=== PATIENT | male | born 1970 | race Caucasian/White ===

== ENCOUNTER → 2017-09-01 15:11 | Outpatient (CLI) | payer OTHER, SELFPAY ==
--- NOTE | 2017-09-01 15:17 | MR_ITS ---
MR SHOULDER LT WO CON HISTORY: Left shoulder pain ORDERING PHYSICIAN: Oscar Mijares MD PATIENT AGE: 47 years COMPARISON: None TECHNIQUE: Standard multiplanar multiecho sequences are performed without contrast. FINDINGS: Moderate hypertrophic changes are present at the acromioclavicular joint.. There is complete tear of the supraspinatus tendon with mild retraction of the musculotendinous fibers. The infraspinatus tendon does appear intact. Subscapularis and teres minor tendons are also intact. No obvious labral tear. Subcortical cystic changes are present involving the humeral head at the base of the greater tuberosity. There is a small amount of fluid in the subacromial region and in the subdeltoid region. The bicipital tendon is in place. IMPRESSION: 1. Complete tear of the supraspinatus tendon with mild retraction of the musculotendinous fibers. 2. Hypertrophic changes of the acromioclavicular joint. 3. Subcortical cystic changes of the humeral head
== END ==
PROVIDERS: Family Provider Emergency Medicine; PCP Emergency Medicine; Visit Provider Orthopaedic Surgery
DX: M75.42 Impingement syndrome of left shoulder (principal)
CPT/HCPCS: 73221

== ENCOUNTER 2017-10-04 23:39 | Emergency (ER) | payer OTHER, SELFPAY ==
[2017-10-04 23:48] VITALS: BP 182/102; PULSE 110; RESP 18; TEMP 36.9; O2SAT 97; BMI 74.9
--- NOTE | 2017-10-05 00:10 | HMH.EDGENADL ---
ED Disposition Clinical Impression: Shoulder pain, left Qualifiers: Chronicity: unspecified Qualified Code(s): M25.512 - Pain in left shoulder Disposition: Home, Self-Care Condition on Discharge: Good Instructions: DI for Joint Pain Additional Instructions: see pcp in am Referrals: Richard Best MD [Primary Care Provider] - - Critical Care Critical Care Time: No Attestation: On 10/04/17, the high probability of a clinically significant, sudden or life threatening deterioration of the following system(s) required my full and direct attention, intervention and personal management. The time I documented below is in addition to time spent performing reported procedures but includes the following listed in this critical care notation. Medical Decision Making - Medical Records Medical records reviewed: Yes: I reviewed the patient's medical records. Vital Signs: 10/04/17 23:48 Temperature 98.5 F Temperature Source Oral Pulse Rate [Right Radial] 110 H Respiratory Rate 18 Blood Pressure [Right Arm] 182/102 Blood Pressure Mean [Right Arm] 128 Blood Pressure Source [Right Arm] Automatic Cuff Blood Pressure Position [Right Arm] Sitting 02 Sat by Pulse Oximetry 97 Oxygen Delivery Method Room Air - Lab Data Lab results reviewed: Yes: I reviewed the patient's lab results. - Dixon Inquiry Pt receiving controlled substance: No General Adult HPI - General Chief complaint: PAIN Stated complaint: Pain in Left Shoulder ongoing Time Seen by Provider: 10/05/17 00:11 Mode of Arrival: Ambulatory Source of Information: Patient, Medical Record Limitations: No Limitations Description of Symptoms (Recalled from ER Triage Doc. by RN): Pt reports torn tendons in left upper extremity that needs surgical repair but he is unable to quit smoking to have required surgery. Pt saw Dr. iMjares and an MRI was obtained on 09/03/2017 - History of Present Illness HPI narrative: pt with acute excerbation of lt shoulder pain w/o acute trauma - has seen ortho Onset (ago): day(s) Location: left, upper extremity Radiation: non-radiation Severity: moderate Exacerbating factors: movement Associated symptoms: negative: fever/chills - Related Data Home Medications Medication Instructions Recorded Confirmed loratadine 10 mg tablet 10 mg PO QDAY 09/07/17 10/05/17 metformin 1,000 mg tablet 1,000 mg PO BID 09/07/17 10/05/17 Fluticasone Propionate 1 spray INTRANASAL QDAY 10/05/17 10/05/17 Metformin HCl [Glucophage] 500 mg PO BID 10/05/17 10/05/17 Allergies Allergy/AdvReac Type Severity Reaction Status Date / Time Penicillins [PENICILLINS] Allergy Unknown rash Verified 10/05/17 00:00 [facility] History I have reviewed the patient's past medical history: Yes Medical History: Reports:: Diabetes Mellitus Type 1 Amputation: No Fractures: No - *Social History Smoking Status: Current every day smoker Tobacco Type: cigarettes # Packs/Day (cigarettes): 1 Alcohol Intake: never Substance Use Type: denies use - Psychiatric History Expresses thoughts of harming self/others: None Suicide Plan Description: No Plan *Family Hx:: Cancer, Heart Attack ROS Obtained: Yes All systems reviewed & no additional complaints - Constitutional Constitutional: Denies fever(s) - Eyes Eyes: Denies change in vision - ENT Ears, Nose, Mouth, and Throat: Denies sore throat - Cardiovascular Cardiovascular: Denies chest pain - Respiratory Respiratory: No chest congestion - Gastrointestinal Gastrointestingal: Denies: abdominal pain - Musculoskeletal Musculoskeletal: Reports joint pain, Reports joint swelling - Integumentary/Breasts Skin/Breast: Denies rash - Neurologic Neurologic: Denies seizure-like activity Physical Exam - General General appearance: alert, in no apparent distress - Head Head exam: normocephalic - Eye Eye exam: Present: PERRL, EOMI - ENT ENT exam: Present: mucous membranes moist - Neck Neck exa
--- NOTE | 2017-10-05 00:13 | ED_ITS ---
ED Disposition Clinical Impression: Shoulder pain, left Qualifiers: Chronicity: unspecified Qualified Code(s): M25.512 - Pain in left shoulder Disposition: Home, Self-Care Condition on Discharge: Good Instructions: DI for Joint Pain Additional Instructions: see pcp in am Referrals: Richard Best MD [Primary Care Provider] - - Critical Care Critical Care Time: No Attestation: On 10/04/17, the high probability of a clinically significant, sudden or life threatening deterioration of the following system(s) required my full and direct attention, intervention and personal management. The time I documented below is in addition to time spent performing reported procedures but includes the following listed in this critical care notation. Medical Decision Making - Medical Records Medical records reviewed: Yes: I reviewed the patient's medical records. Vital Signs: 10/04/17 23:48 Temperature 98.5 F Temperature Source Oral Pulse Rate [Right Radial] 110 H Respiratory Rate 18 Blood Pressure [Right Arm] 182/102 Blood Pressure Mean [Right Arm] 128 Blood Pressure Source [Right Arm] Automatic Cuff Blood Pressure Position [Right Arm] Sitting 02 Sat by Pulse Oximetry 97 Oxygen Delivery Method Room Air - Lab Data Lab results reviewed: Yes: I reviewed the patient's lab results. - Dixon Inquiry Pt receiving controlled substance: No General Adult HPI - General Chief complaint: PAIN Stated complaint: Pain in Left Shoulder ongoing Time Seen by Provider: 10/05/17 00:11 Mode of Arrival: Ambulatory Source of Information: Patient, Medical Record Limitations: No Limitations Description of Symptoms (Recalled from ER Triage Doc. by RN): Pt reports torn tendons in left upper extremity that needs surgical repair but he is unable to quit smoking to have required surgery. Pt saw Dr. Mijares and an MRI was obtained on 09/03/2017 - History of Present Illness HPI narrative: pt with acute excerbation of lt shoulder pain w/o acute trauma - has seen ortho Onset (ago): day(s) Location: left, upper extremity Radiation: non-radiation Severity: moderate Exacerbating factors: movement Associated symptoms: negative: fever/chills - Related Data Home Medications Medication Instructions Recorded Confirmed loratadine 10 mg tablet 10 mg PO QDAY 09/07/17 10/05/17 metformin 1,000 mg tablet 1,000 mg PO BID 09/07/17 10/05/17 Fluticasone Propionate 1 spray INTRANASAL QDAY 10/05/17 10/05/17 Metformin HCl [Glucophage] 500 mg PO BID 10/05/17 10/05/17 Allergies Allergy/AdvReac Type Severity Reaction Status Date / Time Penicillins [PENICILLINS] Allergy Unknown rash Verified 10/05/17 00:00 [facility] History I have reviewed the patient's past medical history: Yes Medical History: Reports:: Diabetes Mellitus Type 1 Amputation: No Fractures: No - *Social History Smoking Status: Current every day smoker Tobacco Type: cigarettes # Packs/Day (cigarettes): 1 Alcohol Intake: never Substance Use Type: denies use - Psychiatric History Expresses thoughts of harming self/others: None Suicide Plan Description: No Plan *Family Hx:: Cancer, Heart Attack ROS Obtained: Yes All systems reviewed & no additional complaints - Constitutional Constitutional: Denies fever(s) - Eyes Eyes: Denies change in vision -
[2017-10-05 01:34] VITALS: BP 172/98; PULSE 78; RESP 18; TEMP 36.8; O2SAT 97
== END 2017-10-05 01:34 | disposition home or self-care (01) ==
PROVIDERS: Emergency Provider Emergency Medicine; PCP Emergency Medicine
DX: M25.512 Pain in left shoulder (principal); Z87.39 Personal history of other diseases of the musculoskeletal system and connective tissue; F17.219 Nicotine dependence, cigarettes, with unspecified nicotine-induced disorders; E10.8 Type 1 diabetes mellitus with unspecified complications
CPT/HCPCS: 99203; 99281

== ENCOUNTER → 2017-12-03 15:22 | Outpatient (REF) | payer OTHER, SELFPAY ==
[2017-12-03 18:54] LABS: Amphetamine/Metha Screen,Urine Negative ng/mL (<1000); Barbiturates Screen,Urine Negative ng/mL (<200); Benzodiazepines Screen,Urine Negative ng/mL (200); Cannabinoid Screen,Urine Negative ng/mL (<50); Cocaine Screen,Urine Negative ng/g (<300); Methadone Screen,Urine Negative ng/mL (<300); Opiate Screen,Urine Positive ng/mL (<300); Phencyclidine Screen,Urine Negative ng/mL (<25)
== END ==
LOC: LAB 15:22
PROVIDERS: Visit Provider Emergency Medicine
DX: Z79.899 Other long term (current) drug therapy (principal)
CPT/HCPCS: 80305

== ENCOUNTER → 2018-01-25 15:06 | Outpatient (REF) | payer OTHER, SELFPAY ==
[2018-01-25 18:58] LABS: Amphetamine/Metha Screen,Urine Negative ng/mL (<1000); Barbiturates Screen,Urine Negative ng/mL (<200); Benzodiazepines Screen,Urine Negative ng/mL (200); Cannabinoid Screen,Urine Negative ng/mL (<50); Cocaine Screen,Urine Negative ng/g (<300); Methadone Screen,Urine Negative ng/mL (<300); Opiate Screen,Urine Positive ng/mL (<300); Phencyclidine Screen,Urine Negative ng/mL (<25)
== END ==
LOC: LAB 15:06
PROVIDERS: Visit Provider Nurse Practitioner Family
DX: Z79.899 Other long term (current) drug therapy (principal)
CPT/HCPCS: 80305

== ENCOUNTER → 2018-02-22 15:17 | Outpatient (REF) | payer OTHER, SELFPAY ==
[2018-02-22 19:47] LABS: Amphetamine/Metha Screen,Urine Negative ng/mL (<1000); Barbiturates Screen,Urine Negative ng/mL (<200); Benzodiazepines Screen,Urine Negative ng/mL (200); Cannabinoid Screen,Urine Negative ng/mL (<50); Cocaine Screen,Urine Negative ng/g (<300); Methadone Screen,Urine Negative ng/mL (<300); Opiate Screen,Urine Positive ng/mL (<300); Phencyclidine Screen,Urine Negative ng/mL (<25)
== END ==
LOC: LAB 15:17
PROVIDERS: Visit Provider Emergency Medicine
DX: Z79.899 Other long term (current) drug therapy (principal)
CPT/HCPCS: 80305

== ENCOUNTER → 2018-03-23 15:04 | Outpatient (REF) | payer OTHER, SELFPAY ==
[2018-03-23 19:21] LABS: Hemoglobin A1C 8.9 % (0.0-7.0)
[2018-03-23 19:24] LABS: Alanine Aminotransferase 65 U/L (12-78); Albumin Level 3.8 gm/dL (3.4-5.0); Alkaline Phosphatase 119 U/L (46-116); Anion Gap 11.3 mEq/L (5-15); Aspartate Amino Transferase 28 U/L (15-37); Bilirubin,Total 0.3 mg/dL (0.2-1.0); Blood Urea Nitrogen 14 mg/dL (7-18); Calcium 9.7 mg/dL (8.5-10.1); Carbon Dioxide 27 mmol/L (21.0-32.0); Chloride 102 mmol/L (98-107); Creatinine,Serum 0.96 mg/dL (0.70-1.30); Estimated Glomerular Filt Rate 84 ml/min (>60); GFR (African American) 102 ML/MIN (>60); Glucose 221 mg/dL (74-106); Potassium 4.3 mmoL/L (3.5-5.1); Sodium 136 mmol/L (136-145); Total Protein,Serum 7.8 gm/dL (6.4-8.2)
[2018-03-23 22:25] LABS: Basophils # 0.1 K/mm3 (0-0.2); Basophils % 1.2 % (0.1-2.0); Eosinophils # 0.3 K/mm3 (0.0-0.4); Eosinophils % 3.3 % (0.1-12.0); Hematocrit 49.4 % (42.0-52.0); Hemoglobin 16.1 g/dL (14.1-18.0); Lymphocytes # 2.6 K/mm3 (0.7-4.5); Lymphocytes % 28.3 K/mm3 (10-50); Mean Corpuscular HGB Conc 32.5 g/dL (31.8-35.4); Mean Corpuscular Hemoglobin 27.6 pg (27.0-31.2); Mean Corpuscular Volume 84.9 fl (80-94); Monocytes # 0.6 K/mm3 (0.1-1.0); Monocytes % 5.9 % (1.7-9.3); Neutrophils # 5.6 K/mm3 (1.8-7.8); Neutrophils % 61.2 % (37.0-80.0); Platelet Count 296 K/mm3 (142-424); Red Blood Count 5.82 M/mm3 (4.60-6.20); Red Cell Distribution Width 14.1 % (11.5-17.5); White Blood Count 9.2 K/mm3 (4.8-10.8)
[2018-03-25 19:02] LABS: Amphetamine/Metha Screen,Urine Negative ng/mL (<1000); Barbiturates Screen,Urine Negative ng/mL (<200); Benzodiazepines Screen,Urine Negative ng/mL (<200); Cannabinoid Screen,Urine Negative ng/mL (<50); Cocaine Screen,Urine Negative ng/mL (<300); Methadone Screen,Urine Negative ng/mL (<300); Opiate Screen,Urine Positive ng/mL (<300); Phencyclidine Screen,Urine Negative ng/mL (<25)
== END ==
LOC: LAB 15:04
PROVIDERS: Visit Provider Emergency Medicine
DX: E10.9 Type 1 diabetes mellitus without complications (principal); Z79.899 Other long term (current) drug therapy
CPT/HCPCS: 80053; 80305; 83036; 85025

== ENCOUNTER → 2018-03-24 10:41 | Outpatient (CLI) | payer OTHER, SELFPAY | PROVIDERS: Visit Provider Emergency Medicine | DX: E10.9 Type 1 diabetes mellitus without complications (principal) ==

== ENCOUNTER → 2018-04-29 09:39 | Outpatient (CLI) | payer OTHER, SELFPAY | PROVIDERS: Visit Provider Emergency Medicine | DX: Z79.899 Other long term (current) drug therapy (principal); E11.9 Type 2 diabetes mellitus without complications ==

== ENCOUNTER → 2018-06-07 15:19 | Outpatient (REF) | payer OTHER, SELFPAY ==
[2018-06-07 19:23] LABS: Amphetamine/Metha Screen,Urine Negative ng/mL (<1000); Barbiturates Screen,Urine Negative ng/mL (<200); Benzodiazepines Screen,Urine Negative ng/mL (<200); Cannabinoid Screen,Urine Negative ng/mL (<50); Cocaine Screen,Urine Negative ng/mL (<300); Methadone Screen,Urine Negative ng/mL (<300); Opiate Screen,Urine Positive ng/mL (<300); Phencyclidine Screen,Urine Negative ng/mL (<25)
== END ==
LOC: LAB 15:19
PROVIDERS: Visit Provider Emergency Medicine
DX: Z79.899 Other long term (current) drug therapy (principal)
CPT/HCPCS: 80305

== ENCOUNTER → 2018-07-04 13:53 | Outpatient (CLI) | payer OTHER, SELFPAY ==
[2018-07-04 15:09] LABS: Amphetamine/Metha Screen,Urine Negative ng/mL (<1000); Barbiturates Screen,Urine Negative ng/mL (<200); Benzodiazepines Screen,Urine Negative ng/mL (<200); Cannabinoid Screen,Urine Negative ng/mL (<50); Cocaine Screen,Urine Negative ng/mL (<300); Methadone Screen,Urine Negative ng/mL (<300); Opiate Screen,Urine Positive ng/mL (<300); Phencyclidine Screen,Urine Negative ng/mL (<25)
[2018-07-14 20:18] LABS: Codeine Negative (Cutoff=100); Hydrocodone Positive (.); Hydromorphone Negative (Cutoff=100); Morphine Positive (.); Oxycodone (GC/MS) 2267 ng/mL (Cutoff=100)
[2018-07-15 07:02] LABS: Opiates Positive (.); Oxymorphone (GC/MS) 774 ng/mL (Cutoff=100)
== END ==
PROVIDERS: PCP Nurse Practitioner Family; Visit Provider Nurse Practitioner Family
DX: Z79.899 Other long term (current) drug therapy (principal)
CPT/HCPCS: 80305; 80361; 80365; G0480

== ENCOUNTER 2018-07-08 13:00 | Outpatient (RCR) | payer OTHER, SELFPAY | END 2018-07-08 13:01 | disposition home or self-care (01) | LOC: OT 13:00 | PROVIDERS: Visit Provider Orthopaedic Surgery Adult Reconstructive Orthopaedic Surgery | DX: Z96.612 Presence of left artificial shoulder joint (principal); M25.512 Pain in left shoulder | CPT/HCPCS: 97014; 97110; 97140; 97164; 97165; 97530; G0283 ==

== ENCOUNTER 2020-03-04 13:46 | Emergency (ER) | payer OTHER, SELFPAY ==
[2020-03-04 13:58] VITALS: BP 103/76; PULSE 96; RESP 20; TEMP 36.8; O2SAT 100; BMI 33.2
--- NOTE | 2020-03-04 14:13 | HMH.EDUTC ---
[facility] [place] Disposition Clinical Impression: Impacted cerumen of right ear Disposition: Home, Self-Care Condition on Discharge: Good Instructions: DI for Cerumen Impaction, Cerumen Impaction Additional Instructions: Over the counter Debrox may help to keep prevent cereum impaction in your ears Do not use Qtips in the ears as this could damage your ear drum or impact the wax in your ear making it harder to get out Return if needed Straight to ER if any life threatening symptoms Follow up with Family Doctor if no improvement or any worsening of symptoms in the next 48-72 hours Prescriptions: Azithromycin [Z-Tanner 250mg Tab] 250 mg PO DIRECTED #6 tab Transmission Status: Pending to [facility] Referrals: Richard Best MD [Primary Care Provider] - As needed Time of Disposition: 14:35 Medical Decision Making - Dixon Inquiry Pt receiving controlled substance: No Dixon was queried for this patient: No Vital Signs: 03/04/20 13:58 Temperature 98.2 F Temperature Source Temporal Artery Scan Pulse Rate [Right Brachial] 96 H Respiratory Rate 20 Blood Pressure [Right Arm] 103/76 L Blood Pressure Mean [Right Arm] 85 Blood Pressure Source [Right Arm] Automatic Cuff Blood Pressure Position [Right Arm] Sitting 02 Sat by Pulse Oximetry 100 Oxygen Delivery Method Room Air [facility] [place] HPI - General Stated complaint: rt eat pain Time Seen by Provider: 03/04/20 14:13 Mode of Arrival: Ambulatory Source of Information: Patient Limitations: No Limitations Description of Symptoms (Recalled from Triage Doc. by RN): PATIENT C/O RIGHT EARACHE WITH DECREASED HEARING X 2 DAYS HEENT Symptoms (Recalled from RN notes): Yes Resp Symptoms (Recalled from RN notes): No Skin Symptoms (Recalled from RN notes): No MS Symptoms (Recalled from RN notes): No Functional Status (Recalled from RN notes): WNL - History of Present Illness Provider Complaint: Patient states that he has been having pain and decreased hearing in his right ear for 2 days States that he has been using a Qtip to clean his ear but not been getting anything out. States that he was worried that he may have an ear infection so he came in to get his ear checked - Related Data Previous Rx's Medication Instructions Recorded ondansetron HCl 4 mg tablet 4 mg PO Q8H PRN #20 tab 03/23/18 atorvastatin 20 mg tablet 20 mg PO DAILY #90 tab 03/28/18 glipizide 10 mg tablet, extended 10 mg PO DAILY #90 tab 03/28/18 release 24 hr lisinopril 2.5 mg tablet 2.5 mg PO DAILY #90 tab 03/28/18 metformin 1,000 mg tablet 1,000 mg PO BID #180 tab 03/29/18 oxycodone-acetaminophen 5 mg-325 1 tab PO QID PRN #60 tab 07/04/18 mg tablet fluticasone propionate 50 See Rx Instructions .ROUTE 01/05/19 mcg/actuation nasal .COMPLEX #16 unspecified spray,suspension cetirizine 10 mg tablet 10 mg PO DAILY #30 tab 02/01/20 Azithromycin [Z-Tanner 250mg Tab] 250 mg PO DIRECTED #6 tab 03/04/20 Allergies Allergy/AdvReac Type Severity Reaction Status Date / Time Penicillins [PENICILLINS] Allergy Unknown rash Verified 07/04/18 11:01 - Worker's Comp Is this a Worker's Comp case?: No [facility] History - Hepatitis A Screen Drug use history?: No High risk sexual behaviors?: No History of sexually transmitted infection?: No Currently employed?: No Childcare worker?: No Do you have indoor plumbing?: Yes Do you have electricity?: Yes Attestation statement:: This patient has been screened for Hepatitis A risk factors. I have reviewed the patient's past medical history: Yes Medical History: Reports:: Dementia, Diabetes Mellitus Type 1, Diabetes Mellitus Type 2 Laterality Cases: Left: Arthroscopy Shoulder Other Surgeries: Yes: No Previous Surgery, Cholecystectomy, Other Amputation: No Fractures: No Comment: choleycystectomy - Social History Smoking Status: Current every day smoker Tobacco Type: cigarettes # Packs/Day (cigarettes): 1 Alcohol Intake: never Substance Use Type: denies use O
[2020-03-04 14:38] VITALS: BP 103/76; PULSE 96; RESP 20; TEMP 36.8; O2SAT 100
== END 2020-03-04 14:39 | disposition home or self-care (01) ==
PROVIDERS: Emergency Provider Nurse Practitioner; PCP Emergency Medicine
DX: H92.01 Otalgia, right ear (principal); H61.21 Impacted cerumen, right ear; F03.90 Unspecified dementia, unspecified severity, without behavioral disturbance, psychotic disturbance, mood disturbance, and anxiety; F17.210 Nicotine dependence, cigarettes, uncomplicated; Z88.0 Allergy status to penicillin; Z90.49 Acquired absence of other specified parts of digestive tract; Z79.899 Other long term (current) drug therapy
CPT/HCPCS: 99201

== ENCOUNTER → 2020-03-25 14:02 | Outpatient (CLI) | payer OTHER, SELFPAY ==
--- NOTE | 2020-03-25 14:09 | MR_ITS ---
PROCEDURE: MR SHOULDER LT WO CON CLINICAL INDICATION: LT SHOULDER PAIN Weakness in arm, pain when raising arm above head. COMPARISON: 11/26/2016 TECHNIQUE: Routine multiplanar multi echo sequences are performed without gadolinium enhancement. FINDINGS: T1 and T2 weighted coronal oblique images again demonstrate degeneration and full-thickness supraspinatus tendon tear more anteriorly. There is thinning of the undersurface of the infraspinatus tendon fibers. The subscapularis and teres minor tendons appear intact. There is degeneration with partial tears of the long head of the biceps tendon is seen in the bicipital groove. There is hypertrophic degenerative joint disease of the acromioclavicular joint again seen with fibrosis over growth of the capsule and with osteophytes more projecting superiorly and lesser inferiorly to indent the top of the supraspinatus muscle and tendon. Small subchondral erosions with mild marrow edema of the humeral head is seen at the insertion sites of the supraspinatus and infraspinatus tendons. Two metallic anchor clips are also seen over the humeral head anterolaterally. There is a small joint effusion present. Small amount of fluid is seen in the subacromial/subdeltoid bursa and deep to the supraspinatus tendon anteriorly. IMPRESSION: 1.Again noted a complete tear of the anterior aspect of the supraspinatus tendon with about 1.4 centimeter retraction. The posterior aspect of the tendon is intact. 2. Partial tear of the infraspinatus tendon. 3. Hypertrophic joint disease of the acromioclavicular joint with osteophytes projecting superiorly/inferiorly is seen with impingement of underlying supraspinatus muscle/tendon. 4. Degeneration/partial tear of the long head of the biceps tendon. 5. Small joint effusion. Bursitis with small fluid in the subacromial/subdeltoid bursa. Dictated by: Zhen Benjamin 03/25/2020 15:59 Electronically signed by Zhen Benjamin in [place] 03/25/2020 15:59
== END ==
PROVIDERS: PCP Emergency Medicine; Visit Provider Orthopaedic Surgery Adult Reconstructive Orthopaedic Surgery
DX: M25.512 Pain in left shoulder (principal)
CPT/HCPCS: 73221

== ENCOUNTER → 2020-06-12 17:55 | Outpatient (CLI) | payer OTHER, SELFPAY ==
[2020-06-12 18:36] LABS: Basophils # 0.1 K/mm3 (0-0.2); Basophils % 0.7 % (0.1-2.0); Eosinophils # 0.3 K/mm3 (0.0-0.4); Eosinophils % 2.8 % (0.1-12.0); Hematocrit 45.6 % (42.0-52.0); Hemoglobin 14.3 g/dL (14.1-18.0); Lymphocytes # 2.5 K/mm3 (0.7-4.5); Mean Corpuscular HGB Conc 31.3 g/dL (31.8-35.4); Mean Corpuscular Volume 89.2 fl (80-94); Mean Platelet Volume 9.6 fl (7.4-10.4); Monocytes # 0.6 K/mm3 (0.1-1.0); Monocytes % 7.2 % (1.7-9.3); Neutrophils # 5.4 K/mm3 (1.8-7.8); Neutrophils % 61.2 % (37.0-80.0); Platelet Count 291 K/mm3 (142-424); Red Blood Count 5.11 M/mm3 (4.60-6.20); Red Cell Distribution Width 13.7 % (11.5-17.5); White Blood Count 8.8 K/mm3 (4.8-10.8)
[2020-06-12 19:04] LABS: Hemoglobin A1C 10.1 % (4.0-6.0)
[2020-06-12 19:07] LABS: Alanine Aminotransferase 48 U/L (12-78); Albumin Level 4.3 g/dl (3.5-5.0); Albumin/Globulin Ratio 1.5 (1.1-1.8); Alkaline Phosphatase 121 U/L (38-126); Anion Gap 15.3 mEq/L (5-15); Aspartate Amino Transferase 40 U/L (17-59); Bilirubin,Total 0.5 mg/dl (0.2-1.3); Blood Urea Nitrogen 11 mg/dl (9-20); Calcium 9.2 mg/dl (8.4-10.2); Carbon Dioxide 26 mmol/L (22.0-30.0); Chloride 101 mmol/L (98-107); Chol/HDL Ratio 7.6 (1-3.5); Cholesterol 229 mg/dl (140-200); Estimated Glomerular Filt Rate 120 ml/min (>60); GFR (African American) 146 ML/MIN (>60); Globulin 2.8 g/dL (1.3-3.2); Glucose 278 mg/dl (74-100); HDL Cholesterol 30 mg/dl (40-60); Potassium 4.3 mmoL/L (3.5-5.1); Sodium 138 mmol/L (136-145); Total Protein,Serum 7.1 g/dl (6.3-8.2); Triglycerides 280 mg/dl (30-150); VLDL Cholesterol 56 mg/dL (0-40)
[2020-06-12 19:18] LABS: Direct LDL Cholesterol 164.16 mg/dL (100-129)
[2020-06-12 19:24] LABS: 25-OH Vitamin D, Total 33.7 ng/mL (30-100)
[2020-06-12 19:26] LABS: Free T4 (Free Thyroxine) 1.26 ng/dl (0.78-2.19)
[2020-06-12 19:40] LABS: Thyroid Stimulating Hormone 0.74 uIU/mL (0.465-4.68)
== END ==
PROVIDERS: Visit Provider Emergency Medicine
DX: E10.9 Type 1 diabetes mellitus without complications (principal); E55.9 Vitamin D deficiency, unspecified; Z79.84 Long term (current) use of oral hypoglycemic drugs
CPT/HCPCS: 80053; 80061; 82306; 83036; 84439; 84443; 85025

== ENCOUNTER 2020-07-05 09:21 | Emergency (ER) | payer OTHER, SELFPAY ==
[2020-07-05 09:31] VITALS: BP 135/88; PULSE 101; RESP 20; TEMP 37.2; O2SAT 98; BMI 33.0
--- NOTE | 2020-07-05 10:06 | HMH.EDUTC ---
[facility] [place] Disposition Clinical Impression: Abscess of upper back excluding scapular region Disposition: Home, Self-Care Condition on Discharge: Good Instructions: Boil Additional Instructions: Keep the affected area clean and dry. Follow up with your regular doctor. Take the antibiotics as directed and apply the topical antibiotics as directed. Apply warm wet compresses to the affected area three or four times per day. GO TO THE ER FOR ANY WORSENING SYMPTOMS Prescriptions: Ibuprofen [Ibuprofen 600mg Tablet] 600 mg PO Q6HP PRN #30 tab PRN Reason: Mild Pain Transmission Status: Received by [facility] Sulfamethoxazole/Trimethoprim [Bactrim DS tablet] 1 each PO BID 10 Days #20 tab Transmission Status: Received by [facility] Mupirocin [Bactroban 2% Ointment 22gm tube] 1 applicatio TP TID 7 Days #1 tube Transmission Status: Received by [facility] cephALEXin [Keflex 500mg Cap] 500 mg PO Q6H 10 Days #40 cap Transmission Status: Received by [facility] Referrals: Richard Best MD [Primary Care Provider] - Time of Disposition: 10:33 Medical Decision Making - Medical Records Medical records reviewed: No: I reviewed the patient's medical records. - Dixon Inquiry Pt receiving controlled substance: No Vital Signs: 07/05/20 09:31 Temperature 98.9 F Temperature Source Oral Pulse Rate [Right Brachial] 101 H Respiratory Rate 20 Blood Pressure [Right Arm] 135/88 Blood Pressure Mean [Right Arm] 103 Blood Pressure Source [Right Arm] Automatic Cuff Blood Pressure Position [Right Arm] Sitting 02 Sat by Pulse Oximetry 98 Oxygen Delivery Method Room Air Orders (Tests/Meds): ED MEDICATIONS Discontinued Medications Generic Name Dose Route Start Last Admin Trade Name Freq PRN Reason Stop Dose Admin Cephalexin HCl 500 mg 07/05/20 10:06 07/05/20 10:25 Cephalexin 500mg Capsule PO 07/05/20 10:07 500 mg ONCE ONE Administration Protocol Ibuprofen 800 mg 07/05/20 10:27 07/05/20 10:30 Ibuprofen 400 Mg Tablet PO 07/05/20 10:28 800 mg ONCE ONE Administration Trimethoprim/Sulfamethoxazole 1 each 07/05/20 10:06 07/05/20 10:27 Sulfa/Trimethoprim 1 Tablet PO 07/05/20 10:07 1 each ONCE ONE Administration Protocol ORDERS Category Date Time Status Wound Culture and Gram Stain Stat Micro 07/05/20 10:33 Ordered [facility] [place] HPI - General Stated complaint: cyst on back of neck Time Seen by Provider: 07/05/20 10:06 Mode of Arrival: Ambulatory Source of Information: Patient Limitations: No Limitations Description of Symptoms (Recalled from Triage Doc. by RN): PATIENT C/O CYST TO BACK OF NECK. HE REPORTS IT HAS BEEN THERE APPROX 1 YEAR, HOWEVER IT HAS GOTTEN MORE PAINFUL IN THE PAST FEW DAYS HEENT Symptoms (Recalled from RN notes): No Resp Symptoms (Recalled from RN notes): No Skin Symptoms (Recalled from RN notes): Yes MS Symptoms (Recalled from RN notes): No Functional Status (Recalled from RN notes): WNL - History of Present Illness Provider Complaint: He states that he has had and infected area on the back of his neck for the past 2 days. She states the site is very painful to touch. He denies any fever or chills. - Related Data Home Medications Medication Instructions Recorded Confirmed Metformin HCl [Glucophage] 500 mg PO BID 07/05/20 07/05/20 Previous Rx's Medication Instructions Recorded Ibuprofen [Ibuprofen 600mg 600 mg PO Q6HP PRN #30 tab 07/05/20 Tablet] Mupirocin [Bactroban 2% Ointment 1 applicatio TP TID 7 Days #1 tube 07/05/20 22gm tube] Sulfamethoxazole/Trimethoprim 1 each PO BID 10 Days #20 tab 07/05/20 [Bactrim DS tablet] cephALEXin [Keflex 500mg Cap] 500 mg PO Q6H 10 Days #40 cap 07/05/20 Allergies Allergy/AdvReac Type Severity Reaction Status Date / Time Penicillins [PENICILLINS] Allergy Unknown rash Verified 06/12/20 15:02 - Worker's Comp Is this a Worker's Co
[2020-07-05 10:37] VITALS: BP 135/88; PULSE 101; RESP 20; TEMP 37.2; O2SAT 98
== END 2020-07-05 10:39 | disposition home or self-care (01) ==
PROVIDERS: Emergency Provider Nurse Practitioner Family; PCP Emergency Medicine
DX: L02.212 Cutaneous abscess of back [any part, except buttock and flank] (principal); B96.89 Other specified bacterial agents as the cause of diseases classified elsewhere; E11.9 Type 2 diabetes mellitus without complications; E10.9 Type 1 diabetes mellitus without complications; F03.90 Unspecified dementia, unspecified severity, without behavioral disturbance, psychotic disturbance, mood disturbance, and anxiety; Z87.39 Personal history of other diseases of the musculoskeletal system and connective tissue; Z90.49 Acquired absence of other specified parts of digestive tract; Z72.0 Tobacco use; Z88.0 Allergy status to penicillin; Z79.84 Long term (current) use of oral hypoglycemic drugs
CPT/HCPCS: 10060; 87070; 87077; 87186; 87205; 99201

== ENCOUNTER → 2020-09-05 18:23 | Outpatient (CLI) | payer OTHER, SELFPAY ==
[2020-09-05 18:49] LABS: Basophils # 0.1 K/mm3 (0-0.2); Eosinophils # 0.2 K/mm3 (0.0-0.4); Eosinophils % 2.7 % (0.1-12.0); Hematocrit 51.5 % (42.0-52.0); Hemoglobin 16.4 g/dL (14.1-18.0); Lymphocytes # 1.8 K/mm3 (0.7-4.5); Lymphocytes % 21.6 % (10-50); Mean Corpuscular HGB Conc 31.8 g/dL (31.8-35.4); Mean Corpuscular Hemoglobin 27.9 pg (27.0-31.2); Mean Corpuscular Volume 87.7 fl (80-94); Mean Platelet Volume 10.2 fl (7.4-10.4); Monocytes # 0.5 K/mm3 (0.1-1.0); Monocytes % 5.6 % (1.7-9.3); Neutrophils # 5.9 K/mm3 (1.8-7.8); Neutrophils % 69.2 % (37.0-80.0); Platelet Count 300 K/mm3 (142-424); Red Blood Count 5.87 M/mm3 (4.60-6.20); Red Cell Distribution Width 14.1 % (11.5-17.5); White Blood Count 8.5 K/mm3 (4.8-10.8)
[2020-09-05 18:54] LABS: Chloride 100 mmol/L (98-107); Potassium 4.4 mmoL/L (3.5-5.1); Sodium 138 mmol/L (136-145)
[2020-09-05 18:56] LABS: Blood Urea Nitrogen 13 mg/dl (9-20); Estimated Glomerular Filt Rate 120 ml/min (>60); GFR (African American) 146 ML/MIN (>60)
[2020-09-05 18:57] LABS: Alanine Aminotransferase 36 U/L (12-78); Albumin Level 4.5 g/dl (3.5-5.0); Albumin/Globulin Ratio 1.4 (1.1-1.8); Alkaline Phosphatase 106 U/L (38-126); Anion Gap 11.4 mEq/L (5-15); Aspartate Amino Transferase 31 U/L (17-59); Bilirubin,Total 0.6 mg/dl (0.2-1.3); Calcium 9.7 mg/dl (8.4-10.2); Carbon Dioxide 31 mmol/L (22.0-30.0); Cholesterol 272 mg/dl (140-200); Globulin 3.2 g/dL (1.3-3.2); Glucose 253 mg/dl (74-100); Total Protein,Serum 7.7 g/dl (6.3-8.2); Triglycerides 205 mg/dl (30-150); VLDL Cholesterol 41 mg/dL (0-40)
[2020-09-05 18:58] LABS: HDL Cholesterol 39 mg/dl (40-60)
[2020-09-05 19:02] LABS: Hemoglobin A1C 8.1 % (4.0-6.0)
[2020-09-05 19:14] LABS: 25-OH Vitamin D, Total 24.3 ng/mL (30-100)
[2020-09-05 19:17] LABS: T4 (Thyroxine) 10.9 ug/dl (5.53-11.0)
[2020-09-05 19:28] LABS: Thyroid Stimulating Hormone 0.93 uIU/mL (0.465-4.68)
== END ==
PROVIDERS: PCP Nurse Practitioner Family; Visit Provider Nurse Practitioner Family
DX: E10.9 Type 1 diabetes mellitus without complications (principal); E66.9 Obesity, unspecified; E55.9 Vitamin D deficiency, unspecified; R53.83 Other fatigue; Z79.84 Long term (current) use of oral hypoglycemic drugs
CPT/HCPCS: 80053; 80061; 82306; 83036; 84436; 84443; 85025

== ENCOUNTER 2020-10-11 15:31 | Emergency (ER) | payer OTHER, SELFPAY ==
[2020-10-11 15:54] VITALS: BP 146/63; PULSE 88; RESP 16; TEMP 36.9; O2SAT 98; BMI 34.0
--- NOTE | 2020-10-11 15:59 | HMH.EDUTC ---
[facility] Disposition Clinical Impression: Cellulitis and abscess of face Disposition: Home, Self-Care Condition on Discharge: Good Instructions: DI for Skin Abscess Additional Instructions: *Start antibiotic(s) immediately and be sure to take as ordered for the FULL length of time although you may be feeling better or start to see improvement in the next 24-48 hours *Monitor closely. Outlined redness so that you can monitor easier. Follow up immediately for new or worsening symptoms including but not limited to redness, swelling, streaking from site fever or chills. *Warm compress 15 minutes 3-4 times day *Never squeeze or pop these on your own. Seek immediate medical attention next time this occurs *Monitor Temp. Tylenol every 4 hours as needed and ibuprofen every 6 hours as needed (as long as your primary care doctor has told you that it is ok to take both. For fever, aches, pain. ER if no less that 101 despite Tylenol and ibuprofen Follow up with your family doctor/primary care physician in the next 48-72 hours if no improvement Follow up with Dr Han on Wednesday as scheduled for further evaluation Straight to ER if any worsening of symptoms or worsening of swelling around eye either at [facility] or for Maxillofacial Prescriptions: clindamycin HCL [Clindamycin HCl] 300 mg PO Q6H 7 Days #28 cap Transmission Status: Pending to [facility] Referrals: Richard Best MD [Primary Care Provider] - As needed Tutu Han MD [Staff Physician] - 10/14/20 2:00 pm Time of Disposition: 16:18 Medical Decision Making - Dixon Inquiry Pt receiving controlled substance: No Dixon was queried for this patient: No Vital Signs: 10/11/20 15:54 Temperature 98.5 F Temperature Source Oral Pulse Rate [Right] 88 Respiratory Rate 16 Blood Pressure [Right Arm] 146/63 H Blood Pressure Mean [Right Arm] 90 Blood Pressure Source [Right Arm] Automatic Cuff Blood Pressure Position [Right Arm] Sitting 02 Sat by Pulse Oximetry 98 Oxygen Delivery Method Room Air Medical Decision Narrative: Discussed with patient about not trying to mash the area and applying warm compresses and taking antibiotics Discussed with patient about ED transfer and patient wanted to try medication first Patient advised that if swelling got worse or started having swelling in or around eye Straight to ED either here or at for maxillofacial for further examination and treatment Patient given appointment with Dr Han on Wednesday due to location of abscess and patient agreed [facility] HPI - General Stated complaint: inf on nose Time Seen by Provider: 10/11/20 15:59 Mode of Arrival: Ambulatory Source of Information: Patient Limitations: No Limitations Description of Symptoms (Recalled from Triage Doc. by RN): pt states he had a place pop up yesterday on his nose. between the left upper side of his nose and that eye is red, swollem, and warm. pt states he has squeezed it and nothing comes out. HEENT Symptoms (Recalled from RN notes): Yes (red swollen area between left side of his nose and eye. appears as an abces) Resp Symptoms (Recalled from RN notes): No Skin Symptoms (Recalled from RN notes): No MS Symptoms (Recalled from RN notes): No Functional Status (Recalled from RN notes): na - History of Present Illness Provider Complaint: Patient states that he noticed he had sore spot on the left side of his nose that started like a pimple and he tried to mash it but nothing come out and has continued to get worse throughout the day States that it is sore to the touch and feels swollen on the left side of his nose - Related Data Previous Rx's Medication Instructions Recorded Ibuprofen [Ibuprofen 600mg 600 mg PO Q6HP PRN #30 tab 07/05/20 Tablet] metformin 1,000 mg tablet 1,000 mg PO BID #60 tab 07/10/20 blood sugar diagnostic See Rx Instructions .ROUTE 08/14/20 .MEDSUPPLY #100 each aspirin 81 mg tablet,delayed 81 mg PO DAILY #90 tab 09/05/20 release lancets 33
[2020-10-11 17:44] VITALS: BP 139/70; PULSE 80; RESP 16; TEMP 36.9
== END 2020-10-11 16:23 | disposition home or self-care (01) ==
LOC: ER 15:35 → UTC 15:36
PROVIDERS: Emergency Provider Nurse Practitioner; PCP Emergency Medicine
DX: L03.211 Cellulitis of face (principal); I10 Essential (primary) hypertension; E11.9 Type 2 diabetes mellitus without complications; F03.90 Unspecified dementia, unspecified severity, without behavioral disturbance, psychotic disturbance, mood disturbance, and anxiety; F17.210 Nicotine dependence, cigarettes, uncomplicated; Z88.0 Allergy status to penicillin; Z79.899 Other long term (current) drug therapy
CPT/HCPCS: 99202; G0463

== ENCOUNTER → 2021-04-14 12:23 | Outpatient (CLI) | payer OTHER, SELFPAY | PROVIDERS: PCP Physician Assistant; Visit Provider Nurse Practitioner | DX: Z20.822 Contact with and (suspected) exposure to COVID-19 (principal); U07.1 COVID-19 | CPT/HCPCS: U0003 ==

== ENCOUNTER 2021-04-24 09:34 | Emergency (ER) | payer OTHER, SELFPAY ==
[2021-04-24 11:05] VITALS: BP 100/62; PULSE 83; RESP 18; TEMP 37; O2SAT 97; BMI 33.2
--- NOTE | 2021-04-24 11:22 | HMH.EDUTC ---
[facility] [place] Clinical Impression: Cellulitis and abscess of upper extremity Disposition: Home, Self-Care Condition on Discharge: Good Instructions: Cellulitis, Clindamycin, Mupirocin, DI for Skin Abscess Additional Instructions: *Start antibiotic(s) immediately and be sure to take as ordered for the FULL length of time although you may be feeling better or start to see improvement in the next 24-48 hours *Monitor closely. Outlined redness so that you can monitor easier. Follow up immediately for new or worsening symptoms including but not limited to redness, swelling, streaking from site fever or chills. *Warm compress 15 minutes 3-4 times day *Never squeeze or pop these on your own. Seek immediate medical attention next time this occurs *Monitor Temp. Tylenol every 4 hours as needed and ibuprofen every 6 hours as needed (as long as your primary care doctor has told you that it is ok to take both. For fever, aches, pain. ER if no less that 101 despite Tylenol and ibuprofen Follow up with your family doctor/primary care physician in the next 48-72 hours if no improvement Return if needed Straight to ER if any life threatening symptoms Make sure to take Probiotic or eat some yogurt to help with stomach upset Prescriptions: clindamycin HCL [Clindamycin HCl] 300 mg PO TID 10 Days #30 cap Transmission Status: Received by [facility] Mupirocin Calcium [Mupirocin 2% Cream 15gm] 1 applicatio TP TID #1 tube Transmission Status: Received by [facility] Referrals: Richard Best MD [Primary Care Provider] - As needed Time of Disposition: 11:35 Medical Decision Making - Dixon Inquiry Pt receiving controlled substance: No Dixon was queried for this patient: No Vital Signs: 04/24/21 11:05 04/24/21 11:30 Temperature 98.6 F 98.6 F Temperature Source Oral Oral Pulse Rate 83 Pulse Rate [Right] 83 Respiratory Rate 18 18 Blood Pressure 147/61 H Blood Pressure [Right Arm] 100/62 L Blood Pressure Mean [Right Arm] 74 02 Sat by Pulse Oximetry 97 Oxygen Delivery Method Room Air Room Air [facility] [place] - General Stated complaint: sore on right arm Time Seen by Provider: 04/24/21 11:22 Source of Information: Patient Limitations: No Limitations Description of Symptoms (Recalled from Triage Doc. by RN): Patient c/o Swollen right arm. Patient has a possible abscess on right forearm for the last three days. Patient c/o pain to touch and it is warm to touch. HEENT Symptoms (Recalled from RN notes): No Resp Symptoms (Recalled from RN notes): No Skin Symptoms (Recalled from RN notes): Yes (wound right forearm) MS Symptoms (Recalled from RN notes): No Functional Status (Recalled from RN notes): na - History of Present Illness Provider Complaint: Patient states that he has history of abscesses State that he noticed hard area on the inner aspect of his right arm about 3 days ago state that it has continued to get worse State that now the area has got larger with warmth and surrounding redness with the center feeling hard states that he has had to take antibiotics for these before and today he noticed it was still getting worse so he came in - Related Data Home Medications Medication Instructions Recorded Confirmed levothyroxine 125 mcg capsule 125 mcg PO DAILY 10/22/20 12/11/20 Previous Rx's Medication Instructions Recorded Ibuprofen [Ibuprofen 600mg 600 mg PO Q6HP PRN #30 tab 07/05/20 Tablet] metformin 1,000 mg tablet 1,000 mg PO BID #60 tab 07/10/20 blood sugar diagnostic See Rx Instructions .ROUTE 08/14/20 .MEDSUPPLY #100 each aspirin 81 mg tablet,delayed 81 mg PO DAILY #90 tab 09/05/20 release lancets 33 gauge See Rx Instructions .ROUTE 09/05/20 .MEDSUPPLY #100 each lisinopril 2.5 mg tablet 2.5 mg PO DAILY #90 tab 09/05/20 ergocalciferol (vitamin D2) 1,250 See Rx Instructions .ROUTE 10/02/20 mcg (50,000 unit) capsule .COMPLEX #4 cap simvastatin 5 mg tablet See Rx Instructions .ROUTE 11/29/20
[2021-04-24 11:30] VITALS: BP 147/61; PULSE 83; RESP 18; TEMP 37; O2SAT 99
== END 2021-04-24 11:45 | disposition home or self-care (01) ==
PROVIDERS: Emergency Provider Nurse Practitioner; PCP Emergency Medicine
DX: L03.115 Cellulitis of right lower limb (principal); E11.9 Type 2 diabetes mellitus without complications; F03.90 Unspecified dementia, unspecified severity, without behavioral disturbance, psychotic disturbance, mood disturbance, and anxiety
CPT/HCPCS: 99202; G0463

== ENCOUNTER 2021-04-28 09:16 | Emergency (ER) | payer OTHER, SELFPAY ==
[2021-04-28 09:17] VITALS: BP 137/88; PULSE 96; RESP 18; O2SAT 98; BMI 33.0
[2021-04-28 10:10] VITALS: BP 137/88; PULSE 96; RESP 18; TEMP 36.7; O2SAT 98; BMI 32.9
--- NOTE | 2021-04-28 10:16 | XR_ITS ---
PROCEDURE: XR CHEST 2V CLINICAL HISTORY: cough COMPARISON: CR CXR CHEST(2 VIEWS-NOT PORTABLE) from 03/05/2015 CR CXR CHEST(2 VIEWS-NOT PORTABLE) from 01/04/2017 FINDINGS: The cardiomediastinal silhouette and pulmonary vascularity are within normal limits. The lungs are clear without infiltrates, suspicious nodules, or pleural effusions. Faint nodular opacity is present in the right lower lobe probably unchanged. No acute bony anomalies IMPRESSION: No acute findings. Dictated by: Ruben Bennett MD 04/28/2021 10:51 Ruben Bnenett MD in [place] 04/28/2021 10:51
--- NOTE | 2021-04-28 10:47 | HMH.EDUTC ---
[facility] [place] Clinical Impression: Shoulder pain Qualifiers: Chronicity: unspecified Laterality: left Qualified Code(s): M25.512 - Pain in left shoulder Disposition: Home, Self-Care Condition on Discharge: Good Instructions: Low Back Pain, DI for Low Back Pain, DI for Pleurisy Additional Instructions: *Monitor Temp, Over the counter Motrin or Tylenol as directed/as needed Tylenol every 4 hours and Motrin every 6 hours (as long as your family doctor has told you that you can take it) for fever or pa-in. and straight to ER if unable to lower temp less than 101.0 after medication given Take Follow up IMMEDIATELY for new or worsening symptoms or no Noticeable improvement over the next 48-72 hours. 911 for difficulty breathing or swallowing You were tested for today for COVID19 your test result should be back in the next 24-48 hours, Check the [facility] Portal to see if your test results are back in the next 48 it may say detected that means your result is positive.You was given handout instructions on how log on and see your results. If you do not have internet access you may call the [facility] for your results [phone] You was given a handout with instructions for Self Quarantine and Self isolation for while you wait on test results and what to do if they are positive If you are positive the Health Dept will be contacting you also Make sure to take your Vitamins Vit. C Vit D and Zinc if you can take them Prescriptions: Ibuprofen [Ibuprofen 600mg Tablet] 600 mg PO TID PRN #15 tab PRN Reason: Moderate Pain Transmission Status: Pending to [facility] methocarbamoL [Methocarbamol] 500 mg PO BID PRN #10 tab PRN Reason: Muscle Spasm Transmission Status: Pending to [facility] Referrals: Richard Best MD [Primary Care Provider] - As needed Time of Disposition: 11:00 Medical Decision Making - Dixon Inquiry Pt receiving controlled substance: No Dixon was queried for this patient: No Vital Signs: 04/28/21 09:17 04/28/21 10:10 Temperature 98.0 F Temperature Source Oral Pulse Rate [Right] 96 H 96 H Respiratory Rate 18 18 Blood Pressure [Right Arm] 137/88 137/88 Blood Pressure Mean [Right Arm] 104 104 Blood Pressure Source [Right Arm] Automatic Cuff Blood Pressure Position [Right Arm] Sitting 02 Sat by Pulse Oximetry 98 98 Oxygen Delivery Method Room Air Room Air - Radiology Data #1 Image(s): Chest Image Reviewed: Yes I have reviewed radiologist's interpretation IMPRESSION: No acute findings. Medical Decision Narrative: Discussed symptoms with patient and due to recent COVID recommended transfer back to the ED for further evaluation and testing to R/O PE and patient declined transfer state that he will follow up with his PCP he didnt want to go back to the ED and hurts sometimes with movement Patient educated on risks and still declined [facility] [place]PI - General Stated complaint: Pain under left shoulder blade Time Seen by Provider: 04/28/21 10:47 Mode of Arrival: Ambulatory Source of Information: Patient Limitations: No Limitations Description of Symptoms (Recalled from Triage Doc. by RN): PATIENT C/O UPPER BACK PAIN WHEN TAKING A DEEP BREATH. DENIES SOA. RECENTLY DX WITH COVID ON 04/14 HEENT Symptoms (Recalled from RN notes): No Resp Symptoms (Recalled from RN notes): No Skin Symptoms (Recalled from RN notes): No MS Symptoms (Recalled from RN notes): No Functional Status (Recalled from RN notes): WNL - History of Present Illness Provider Complaint: Patient state that he had COVID back the first of the month and is better from that States that yesterday he started having pain in his left shoulder blade area that is worse with deep breath and at times with certain movement Denies SOA denies pain in chest area State that he was suppose to go back to work today but didnt where this started - Related Data Home Medications Medication Instructions Recorded Confirmed levothyro
[2021-04-28 11:01] VITALS: BP 137/88; PULSE 96; RESP 18; TEMP 36.7; O2SAT 98
== END 2021-04-28 11:05 | disposition home or self-care (01) ==
PROVIDERS: Emergency Provider Student in an Organized Health Care Education/Training Program; PCP Emergency Medicine
DX: M25.512 Pain in left shoulder (principal); M54.6 Pain in thoracic spine; Z86.16 Personal history of COVID-19; E11.9 Type 2 diabetes mellitus without complications; Z88.0 Allergy status to penicillin
CPT/HCPCS: 71046; 99202; G0463

== ENCOUNTER 2022-01-17 17:07 | Emergency (ER) | payer OTHER, SELFPAY ==
[2022-01-17 17:22] VITALS: BP 162/77; PULSE 91; RESP 19; TEMP 36.7; O2SAT 97; BMI 33.2
--- NOTE | 2022-01-17 17:30 | HMH.EDUTC ---
[facility] [place] Clinical Impression: Sinusitis Qualifiers: Sinusitis location: frontal Chronicity: acute Recurrence: non-recurrent Qualified Code(s): J01.10 - Acute frontal sinusitis, unspecified Disposition: Home, Self-Care Condition on Discharge: Good Instructions: DI for Sinusitis Additional Instructions: Drink plenty of fluids. Take tylenol or ibuprofen for pain or fever. Take the medications as directed. Follow up with your regular doctor. GO TO THE ER FOR ANY WORSENING SYMPTOMS Prescriptions: Ondansetron [Zofran 4mg ODT] 4 mg PO Q8HP PRN #20 tab PRN Reason: Nausea Transmission Status: Received by [facility] methylPREDNISolone [Medrol] 4 mg PO DIRECTED 6 Days #21 packet Transmission Status: Received by [id number] Azithromycin [Z-Tanner 250mg Tab*] 250 mg PO UD DOSE PK #6 tab Transmission Status: Received by [facility] Referrals: Richard Best MD [Primary Care Provider] - Time of Disposition: 17:52 Medical Decision Making - Medical Records Medical records reviewed: No: I reviewed the patient's medical records. - Dixon Inquiry Pt receiving controlled substance: No Vital Signs: 01/17/22 17:22 01/17/22 17:57 Temperature 98.0 F 98.0 F Temperature Source Oral Pulse Rate 91 H Pulse Rate [Left Radial] 91 H Respiratory Rate 19 19 Blood Pressure 162/77 H Blood Pressure [Right Arm] 162/77 H Blood Pressure Mean [Right Arm] 105 02 Sat by Pulse Oximetry 97 [facility] [place] HPI - General Stated complaint: stomach,Congestion, Head drainage Time Seen by Provider: 01/17/22 17:30 Mode of Arrival: Ambulatory Source of Information: Patient Limitations: No Limitations Description of Symptoms (Recalled from Triage Doc. by RN): pt here with c/o sinus drainage that is making him nauseated and dry heaving HEENT Symptoms (Recalled from RN notes): Yes Resp Symptoms (Recalled from RN notes): No Skin Symptoms (Recalled from RN notes): No MS Symptoms (Recalled from RN notes): No Functional Status (Recalled from RN notes): wnl - History of Present Illness Provider Complaint: He states that for the past 5 days, he has had sinus congestion and sinus drainage. - Related Data Home Medications Medication Instructions Recorded Confirmed levothyroxine 125 mcg capsule 125 mcg PO DAILY 10/22/20 12/11/20 Previous Rx's Medication Instructions Recorded Ibuprofen [Ibuprofen 600mg 600 mg PO Q6HP PRN #30 tab 07/05/20 Tablet] metformin 1,000 mg tablet 1,000 mg PO BID #60 tab 07/10/20 blood sugar diagnostic See Rx Instructions .ROUTE 08/14/20 .MEDSUPPLY #100 each aspirin 81 mg tablet,delayed 81 mg PO DAILY #90 tab 09/05/20 release lancets 33 gauge See Rx Instructions .ROUTE 09/05/20 .MEDSUPPLY #100 each ergocalciferol (vitamin D2) 1,250 See Rx Instructions .ROUTE 10/02/20 mcg (50,000 unit) capsule .COMPLEX #4 cap simvastatin 5 mg tablet See Rx Instructions .ROUTE 11/29/20 .COMPLEX #90 tab loratadine 10 mg capsule 10 mg PO DAILY #30 cap 12/11/20 azithromycin 250 mg tablet See Rx Instructions PO .COMPLEX #6 04/15/21 tab prednisone 20 mg tablet 20 mg PO BID #10 tab 04/15/21 Mupirocin Calcium [Mupirocin 2% 1 applicatio TP TID #1 tube 04/24/21 Cream 15gm] clindamycin HCL [Clindamycin HCl] 300 mg PO TID 10 Days #30 cap 04/24/21 Ibuprofen [Ibuprofen 600mg 600 mg PO TID PRN #15 tab 04/28/21 Tablet] methocarbamoL [Methocarbamol] 500 mg PO BID PRN #10 tab 04/28/21 glipizide 5 mg tablet See Rx Instructions .ROUTE 09/09/21 .COMPLEX #30 tab lisinopril 2.5 mg tablet See Rx Instructions .ROUTE 09/09/21 .COMPLEX #30 tab Azithromycin [Z-Tanner 250mg Tab*] 250 mg PO UD DOSE PK #6 tab 01/17/22 Ondansetron [Zofran 4mg ODT] 4 mg PO Q8HP PRN #20 tab 01/17/22 methylPREDNISolone [Medrol] 4 mg PO DIRECTED 6 Days #21 01/17/22 packet Allergies Allergy/AdvReac Type Severity Reaction Status Date / Time Penicillins [PENICILLINS] Allergy Unknown
[2022-01-17 17:57] VITALS: BP 162/77; PULSE 91; RESP 19; TEMP 36.7
== END 2022-01-17 18:07 | disposition home or self-care (01) ==
PROVIDERS: Emergency Provider Nurse Practitioner Family; PCP Emergency Medicine
DX: J01.10 Acute frontal sinusitis, unspecified (principal); E10.8 Type 1 diabetes mellitus with unspecified complications; F03.90 Unspecified dementia, unspecified severity, without behavioral disturbance, psychotic disturbance, mood disturbance, and anxiety; F17.210 Nicotine dependence, cigarettes, uncomplicated; Z79.4 Long term (current) use of insulin; Z79.52 Long term (current) use of systemic steroids; Z79.82 Long term (current) use of aspirin; Z79.84 Long term (current) use of oral hypoglycemic drugs; Z79.899 Other long term (current) drug therapy; Z88.0 Allergy status to penicillin; Z82.49 Family history of ischemic heart disease and other diseases of the circulatory system; Z80.9 Family history of malignant neoplasm, unspecified; Z83.6 Family history of other diseases of the respiratory system

== ENCOUNTER 2022-08-19 11:06 | Emergency (ER) | payer OTHER, SELFPAY ==
--- NOTE | 2022-08-19 11:30 | XR_ITS ---
FINAL REPORT CLINICAL HISTORY: pain FINDINGS: RIGHT FOOT Three views of the right foot demonstrate no acute fracture or dislocation. There is mild degenerative change of the great toe. The soft tissues are unremarkable. 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 Reviewed, Interpreted and Dictated by Asim Cardona III, MD Transcribed by Ira Martinez Authenticated and [facility]
--- NOTE | 2022-08-19 11:30 | XR_ITS ---
FINAL REPORT CLINICAL HISTORY: pain lateral side of foot and ankle no known inj FINDINGS: RIGHT ANKLE Three views of the right ankle were obtained. There is no acute fracture or dislocation. There are mild degenerative changes. There is a small chronic calcification inferior to the medial malleolus. There is no soft tissue abnormality. IMPRESSION: Mild degenerative change with no acute bony abnormality. Reviewed, Interpreted and Dictated by Asim Cardona III, MD Transcribed by Ira Martinez Authenticated and [facility]
--- NOTE | 2022-08-19 11:30 | EXP.UTC ---
Discharge Plan Disposition Patient Disposition: Home, Self-Care Condition: Good Prescriptions Prescriptions: New methylprednisolone 4 mg Tablets,Dose Pack 4 mg PO DIRECTED Qty: 21 0RF No Action metformin 1,000 mg tablet 1,000 mg PO BID Qty: 60 2RF aspirin [Adult Low Dose Aspirin] 81 mg tablet,delayed release (DR/EC) 81 mg PO DAILY Qty: 90 3RF (DME) lancets [BD Ultra Fine Lancets] 33 gauge misc See Rx Instructions .ROUTE .MEDSUPPLY Qty: 100 0RF Rx Instructions: As directed levothyroxine 125 mcg capsule 125 mcg PO DAILY loratadine 10 mg capsule 10 mg PO DAILY Qty: 30 2RF (DME) OneTouch Ultra Blue Test Strip Strip See Rx Instructions .ROUTE .MEDSUPPLY Qty: 100 2RF Rx Instructions: Check sugar three times daily ergocalciferol (vitamin D2) [Vitamin D2] 1,250 mcg (50,000 unit) capsule See Rx Instructions .ROUTE .COMPLEX Qty: 4 0RF Dose Instruction: TAKE 1 CAPSULE BY MOUTH ONCE WEEKLY Rx Instructions: TAKE 1 CAPSULE BY MOUTH ONCE WEEKLY simvastatin 5 mg tablet See Rx Instructions .ROUTE .COMPLEX Qty: 90 3RF Dose Instruction: TAKE 1 TABLET BY MOUTH ONCE DAILY Rx Instructions: TAKE 1 TABLET BY MOUTH ONCE DAILY prednisone 20 mg tablet 20 mg PO BID Qty: 10 0RF azithromycin 250 mg tablet See Rx Instructions PO .COMPLEX Qty: 6 0RF Rx Instructions: take 500 mg today (day 1), then 250 mg for 4 days (days 2-5) PO lisinopril 2.5 mg tablet See Rx Instructions .ROUTE .COMPLEX Qty: 30 0RF Dose Instruction: TAKE 1 TABLET BY MOUTH ONCE DAILY Rx Instructions: TAKE 1 TABLET BY MOUTH ONCE DAILY glipizide 5 mg tablet See Rx Instructions .ROUTE .COMPLEX Qty: 30 0RF Dose Instruction: TAKE 1 TABLET BY MOUTH ONCE DAILY Rx Instructions: TAKE 1 TABLET BY MOUTH ONCE DAILY ibuprofen 600 MG tablet 600 mg PO Q6HP PRN (Reason: Mild Pain) Qty: 30 0RF methocarbamol 500 MG tablet 500 mg PO BID PRN (Reason: Muscle Spasm) Qty: 10 0RF ibuprofen 600 MG tablet 600 mg PO TID PRN (Reason: Moderate Pain) Qty: 15 0RF azithromycin 250 MG tablet 250 mg PO UD DOSE PK Qty: 6 0RF Rx Instructions: Take two (2) tablets today, then one (1) tablet days #2 thru #5 methylprednisolone 4 MG tablets,dose pack 4 mg PO DIRECTED 6 Days Qty: 21 0RF ondansetron 4 MG tablet,disintegrating 4 mg PO Q8HP PRN (Reason: Nausea) Qty: 20 0RF clindamycin HCl 300 MG capsule 300 mg PO TID 10 Days Qty: 30 0RF mupirocin calcium 15 GM cream 1 applicatio TP TID Qty: 1 0RF Rx Instructions: apply to area TID x 10 days Referrals Follow up/Referrals: Richard Best MD [Primary Care Provider] - See instructions Guillermina Love DPM [Staff Physician] - See instructions Activity Restrictions/Add. Instructions Additional Instructions/Restrictions: Rest the extremity, apply ice for 15 minutes as tolerated three or four times per day, Wear the bienvenido wrap for compression, Elevate the extremity as tolerated while you are resting. Take ibuprofen for pain. I sent in a prescription to your pharmacy. Follow up with Dr. Love (podiatry). I put in a referral but you need to call her office and schedule an appointment. Follow up with your regular doctor. GO TO THE ER FOR ANY WORSENING SYMPTOMS Clinical Impressions Clinical Impression: Ankle pain, right, Foot pain, right Instructions Patient Instructions: DI for Ankle Pain Discharge ED Provider: Kelvin Tan [facility] [place] HPI General Stated complaint: Rt foot pain, no accident Time Seen by Provider: 08/19/22 11:30 History of Present Illness Provider Complaint: He states that for the past 1 week he has had right foot and ankle pain. He denies any known injury. Related Data Home Medications Medication Instructions Recorded Confirmed levothyroxine 125 mcg capsule 125 mcg PO DAILY 10/22/20 12/11/20 Previous Rx's Medicatio
[2022-08-19 11:42] VITALS: BP 136/102; PULSE 78; RESP 16; TEMP 36.9; O2SAT 97; BMI 32.5
[2022-08-19 12:58] VITALS: BP 136/102; PULSE 78; RESP 16; TEMP 36.9
== END 2022-08-19 12:58 | disposition home or self-care (01) ==
PROVIDERS: Emergency Provider Nurse Practitioner Family; PCP Emergency Medicine
DX: M79.604 Pain in right leg (principal)
CPT/HCPCS: 73610; 73630; 99212; G0463

== ENCOUNTER 2023-01-04 08:29 | Emergency (ER) | payer OTHER, SELFPAY ==
[2023-01-04 08:45] VITALS: BP 109/73; PULSE 86; RESP 19; TEMP 36.9; O2SAT 98; BMI 32.3
--- NOTE | 2023-01-04 09:01 | EXP.UTC ---
Discharge Plan Disposition Patient Disposition: Home, Self-Care Condition: Good Prescriptions Prescriptions: New doxycycline hyclate 100 mg tablet 100 mg PO BID Qty: 20 0RF benzonatate 100 mg capsule 100 mg PO TID PRN (Reason: cough) Qty: 30 0RF guaifenesin [Mucinex] 600 mg tablet extended release 12hr 1,200 mg PO BID PRN (Reason: cough) Qty: 20 0RF albuterol sulfate [Proventil HFA] 90 mcg/actuation HFA aerosol inhaler 2 puff inhalation Q6H PRN (Reason: shortness of breath or wheezing) Qty: 8.5 0RF No Action metformin 1,000 mg tablet 1,000 mg PO BID Qty: 60 2RF aspirin [Adult Low Dose Aspirin] 81 mg tablet,delayed release (DR/EC) 81 mg PO DAILY Qty: 90 3RF (DME) lancets [BD Ultra Fine Lancets] 33 gauge misc See Rx Instructions .ROUTE .MEDSUPPLY Qty: 100 0RF Rx Instructions: As directed levothyroxine 125 mcg capsule 125 mcg PO DAILY loratadine 10 mg capsule 10 mg PO DAILY Qty: 30 2RF (DME) OneTouch Ultra Blue Test Strip Strip See Rx Instructions .ROUTE .MEDSUPPLY Qty: 100 2RF Rx Instructions: Check sugar three times daily ergocalciferol (vitamin D2) [Vitamin D2] 1,250 mcg (50,000 unit) capsule See Rx Instructions .ROUTE .COMPLEX Qty: 4 0RF Dose Instruction: TAKE 1 CAPSULE BY MOUTH ONCE WEEKLY Rx Instructions: TAKE 1 CAPSULE BY MOUTH ONCE WEEKLY simvastatin 5 mg tablet See Rx Instructions .ROUTE .COMPLEX Qty: 90 3RF Dose Instruction: TAKE 1 TABLET BY MOUTH ONCE DAILY Rx Instructions: TAKE 1 TABLET BY MOUTH ONCE DAILY prednisone 20 mg tablet 20 mg PO BID Qty: 10 0RF azithromycin 250 mg tablet See Rx Instructions PO .COMPLEX Qty: 6 0RF Rx Instructions: take 500 mg today (day 1), then 250 mg for 4 days (days 2-5) PO lisinopril 2.5 mg tablet See Rx Instructions .ROUTE .COMPLEX Qty: 30 0RF Dose Instruction: TAKE 1 TABLET BY MOUTH ONCE DAILY Rx Instructions: TAKE 1 TABLET BY MOUTH ONCE DAILY glipizide 5 mg tablet See Rx Instructions .ROUTE .COMPLEX Qty: 30 0RF Dose Instruction: TAKE 1 TABLET BY MOUTH ONCE DAILY Rx Instructions: TAKE 1 TABLET BY MOUTH ONCE DAILY ibuprofen 600 MG tablet 600 mg PO Q6HP PRN (Reason: Mild Pain) Qty: 30 0RF methocarbamol 500 MG tablet 500 mg PO BID PRN (Reason: Muscle Spasm) Qty: 10 0RF ibuprofen 600 MG tablet 600 mg PO TID PRN (Reason: Moderate Pain) Qty: 15 0RF azithromycin 250 MG tablet 250 mg PO UD DOSE PK Qty: 6 0RF Rx Instructions: Take two (2) tablets today, then one (1) tablet days #2 thru #5 methylprednisolone 4 MG tablets,dose pack 4 mg PO DIRECTED 6 Days Qty: 21 0RF ondansetron 4 MG tablet,disintegrating 4 mg PO Q8HP PRN (Reason: Nausea) Qty: 20 0RF clindamycin HCl 300 MG capsule 300 mg PO TID 10 Days Qty: 30 0RF mupirocin calcium 15 GM cream 1 applicatio TP TID Qty: 1 0RF Rx Instructions: apply to area TID x 10 days methylprednisolone 4 mg Tablets,Dose Pack 4 mg PO DIRECTED Qty: 21 0RF Referrals Follow up/Referrals: Richard Best MD [Primary Care Provider] - See instructions Activity Restrictions/Add. Instructions Additional Instructions/Restrictions: Start antibiotic today. Be sure to complete entire prescription even if feeling better Monitor temp. Tylenol every 4 hours as needed and / or ibuprofen every 6 hours as needed ( As long as your primary care physician has told you that it ok to take both. For fever/aches/pains ER if no less than 101 despite Tylenol or Motrin Humidifier/vaporizer or hot steamy shower Inhaler every 4-6 hours as needed like we discussed. If unsure how to use it, ask pharmacist to demonstrate how. Should help open airways and improve cough, wheezing, and shortness of breath Mucinex during the day for your cough and cough suppressant only at night. Be sure to drink lots of
[2023-01-04 09:25] LABS: UTC Strep Screen (Rapid) Negative (Negative)
[2023-01-04 09:35] VITALS: BP 109/73; PULSE 86; RESP 19; TEMP 36.9; O2SAT 98
== END 2023-01-04 09:38 | disposition home or self-care (01) ==
PROVIDERS: Emergency Provider Nurse Practitioner; PCP Emergency Medicine
DX: J20.9 Acute bronchitis, unspecified (principal); R50.9 Fever, unspecified; J01.90 Acute sinusitis, unspecified; E11.9 Type 2 diabetes mellitus without complications; F17.210 Nicotine dependence, cigarettes, uncomplicated; Z79.84 Long term (current) use of oral hypoglycemic drugs; Z20.822 Contact with and (suspected) exposure to COVID-19
CPT/HCPCS: 87880; 99212; 99214; C9803; G0463; U0003; U0005

== ENCOUNTER 2023-03-02 13:04 | Emergency (ER) | payer OTHER, SELFPAY ==
[2023-03-02] VITALS (7 sets, daily range): BP systolic 121–173; BP diastolic 63–82; PULSE 55–74; RESP 16–18; TEMP 36.7–36.9; O2SAT 92–98; BMI 33.2; BMI 33.3
--- NOTE | 2023-03-02 13:22 | EXP.UTC ---
Discharge Plan Disposition Patient Disposition: Still a Patient Condition: Fair Chief Complaint: Headache Prescriptions Prescriptions: No Action metformin 1,000 mg tablet 1,000 mg PO BID Qty: 60 2RF aspirin [Adult Low Dose Aspirin] 81 mg tablet,delayed release (DR/EC) 81 mg PO DAILY Qty: 90 3RF (DME) lancets [BD Ultra Fine Lancets] 33 gauge misc See Rx Instructions .ROUTE .MEDSUPPLY Qty: 100 0RF Rx Instructions: As directed levothyroxine 125 mcg capsule 125 mcg PO DAILY loratadine 10 mg capsule 10 mg PO DAILY Qty: 30 2RF (DME) OneTouch Ultra Blue Test Strip Strip See Rx Instructions .ROUTE .MEDSUPPLY Qty: 100 2RF Rx Instructions: Check sugar three times daily ergocalciferol (vitamin D2) [Vitamin D2] 1,250 mcg (50,000 unit) capsule See Rx Instructions .ROUTE .COMPLEX Qty: 4 0RF Dose Instruction: TAKE 1 CAPSULE BY MOUTH ONCE WEEKLY Rx Instructions: TAKE 1 CAPSULE BY MOUTH ONCE WEEKLY simvastatin 5 mg tablet See Rx Instructions .ROUTE .COMPLEX Qty: 90 3RF Dose Instruction: TAKE 1 TABLET BY MOUTH ONCE DAILY Rx Instructions: TAKE 1 TABLET BY MOUTH ONCE DAILY prednisone 20 mg tablet 20 mg PO BID Qty: 10 0RF azithromycin 250 mg tablet See Rx Instructions PO .COMPLEX Qty: 6 0RF Rx Instructions: take 500 mg today (day 1), then 250 mg for 4 days (days 2-5) PO lisinopril 2.5 mg tablet See Rx Instructions .ROUTE .COMPLEX Qty: 30 0RF Dose Instruction: TAKE 1 TABLET BY MOUTH ONCE DAILY Rx Instructions: TAKE 1 TABLET BY MOUTH ONCE DAILY glipizide 5 mg tablet See Rx Instructions .ROUTE .COMPLEX Qty: 30 0RF Dose Instruction: TAKE 1 TABLET BY MOUTH ONCE DAILY Rx Instructions: TAKE 1 TABLET BY MOUTH ONCE DAILY ibuprofen 600 MG tablet 600 mg PO Q6HP PRN (Reason: Mild Pain) Qty: 30 0RF methocarbamol 500 MG tablet 500 mg PO BID PRN (Reason: Muscle Spasm) Qty: 10 0RF ibuprofen 600 MG tablet 600 mg PO TID PRN (Reason: Moderate Pain) Qty: 15 0RF azithromycin 250 MG tablet 250 mg PO UD DOSE PK Qty: 6 0RF Rx Instructions: Take two (2) tablets today, then one (1) tablet days #2 thru #5 methylprednisolone 4 MG tablets,dose pack 4 mg PO DIRECTED 6 Days Qty: 21 0RF ondansetron 4 MG tablet,disintegrating 4 mg PO Q8HP PRN (Reason: Nausea) Qty: 20 0RF clindamycin HCl 300 MG capsule 300 mg PO TID 10 Days Qty: 30 0RF mupirocin calcium 15 GM cream 1 applicatio TP TID Qty: 1 0RF Rx Instructions: apply to area TID x 10 days methylprednisolone 4 mg Tablets,Dose Pack 4 mg PO DIRECTED Qty: 21 0RF doxycycline hyclate 100 mg tablet 100 mg PO BID Qty: 20 0RF benzonatate 100 mg capsule 100 mg PO TID PRN (Reason: cough) Qty: 30 0RF guaifenesin [Mucinex] 600 mg tablet extended release 12hr 1,200 mg PO BID PRN (Reason: cough) Qty: 20 0RF albuterol sulfate [Proventil HFA] 90 mcg/actuation HFA aerosol inhaler 2 puff inhalation Q6H PRN (Reason: shortness of breath or wheezing) Qty: 8.5 0RF Referrals Follow up/Referrals: Richard Best MD [Primary Care Provider] - See instructions Discharge ED Provider: Tao Miles [facility] HPI General Stated complaint: STOVALL Mode of Arrival: Ambulatory Source of Information: Patient Limitations: No Limitations Time Seen by Provider: 03/02/23 13:22 Description of Symptoms (Recalled from Triage Doc. by RN): Patient states that he has the worst headache of his life for three days now. Denies ever having a headache/migraine in the past. States this headache is causing him to feel sick and denies any vision disturbances. HEENT Symptoms (Recalled from RN notes): Yes Resp Symptoms (Recalled from RN notes): No Skin Symptoms (Recalled from RN notes): No MS Symptoms (Recalled from RN notes): No Functional Status (Recalled from RN notes): wnl History of Present Illness Provider Complaint: Patient
--- NOTE | 2023-03-02 13:35 | HMH.EDGENADL ---
Discharge Plan Disposition Patient Disposition: Home, Self-Care Condition: Fair Prescriptions Prescriptions: New ondansetron 4 mg tablet,disintegrating 4 mg PO TID PRN (Reason: nausea and vomiting) 5 Days Qty: 15 0RF naproxen [Naprosyn] 500 mg tablet 500 mg PO BID PRN (Reason: pain) Qty: 20 0RF No Action methadone 40 mg Tablet,Soluble 100 mg PO DAILY Referrals Follow up/Referrals: Richard Best MD [Primary Care Provider] - See instructions Clinical Impressions Clinical Impression: Headache Qualifiers: Headache type: unspecified Headache chronicity pattern: acute headache Intractability: not intractable Qualified Code(s): R51.9 - Headache, unspecified Discharge ED Provider: Tao Miles Adult HPI General Chief complaint: Headache Stated complaint: STOVALL Time Seen by Provider: 03/02/23 13:22 Mode of Arrival: Ambulatory Source of Information: Patient Limitations: No Limitations Description of Symptoms (Recalled from ER Triage Doc. by RN): 52 M presents from our [facility] after presenting with the worst headache of his life, which began 3 days ago. Patient has tried OTC medications without relief. He is ambulatory, GCS 15, NAD on arrival. No focal neurological deficits noted. History of Present Illness HPI narrative: This is a 52-year-old white male who was sent from the urgent care with a complaint 3 days of left-sided headache along with nasal congestion. Patient denies any photophobia or phonophobia any visual disturbances any unilateral weakness or numbness. Patient does admit to nasal congestion. Patient does describe the pain as sharp intermittent nonprovoked self-limited. No fevers or chills no neck stiffness. 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 Medical History (Updated 03/02/23 @ 15:19 by Tao Miles MD) Diabetes mellitus, type 2 Surgical History History of cholecystectomy History of shoulder surgery Social History Smoking Status: Current every day smoker tobacco type: cigarettes packs per day: 1 alcohol intake: never substance use type: denies use current occupational status: unemployed Travel in the last 8 weeks: None household members: family housing: house ROS Obtained: Yes All systems reviewed & no additional complaints except as documented Skin no rash or lesions HEENT no runny nose sore throat Pulmonary no cough or shortness of breath Cardiovascular no chest pain pressure heaviness GI no abdominal pain nausea or vomiting no dysuria pyuria hematuria Musculoskeletal no neck or back pain Neuro see HPI Endocrine no polydipsia polyuria or polyphasia Psych no SI or HI The rest of the systems were reviewed and found to be negative Physical Exam Narrative Physical exam: Skin: Warm and dry HEENT: Normocephalic atraumatic extract muscles are intact pupils are equal and reactive to light there is tenderness to percussion over the left frontal and maxillary sinuses. Neck: Supple nontender Lungs: Clear to auscultation Heart: Regular rate and rhythm Abdomen: NABS soft nontender Extremities: No clubbing cyanosis or edema Neurologic: No unilateral weakness or numbness Lymphati
--- NOTE | 2023-03-02 14:26 | PC.NURSE ---
Addendum entered by Jonathon Joyce RN 03/02/23 14:28: No new orders from attending Original Note: Patient states his headache has let up some, but it's still there. Attending notified
== END 2023-03-02 15:26 | disposition home or self-care (01) ==
LOC: UTC 13:06 → ER 13:23
PROVIDERS: Emergency Provider Emergency Medicine; PCP Emergency Medicine
DX: R51.9 Headache, unspecified (principal); E11.9 Type 2 diabetes mellitus without complications; F17.210 Nicotine dependence, cigarettes, uncomplicated
CPT/HCPCS: 96361; 96374; 96375; 99284; J2405

== ENCOUNTER 2023-03-03 08:35 | Emergency (ER) | payer OTHER, SELFPAY ==
[2023-03-03 08:36] VITALS: BP 152/71; PULSE 64; RESP 18; TEMP 36.8; O2SAT 98; BMI 33.2
--- NOTE | 2023-03-03 08:50 | CT_ITS ---
FINAL REPORT CLINICAL HISTORY: migraine FINDINGS: Axial images of the head were obtained without contrast. Coronal reformatted images were also obtained.This study was performed with techniques to keep radiation doses as low as reasonably achievable (ALARA). Individualized dose reduction techniques using automated exposure control or adjustment of mA and/or kV according to the patient's size were employed. 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 There is no evidence of intracranial hemorrhage or mass. The ventricular size is within normal limits. There is no evidence of shift of the midline structures. No abnormal extra axial fluid collection is identified. No skull abnormality is seen on the bone window images. IMPRESSION: Chronic appearing findings without acute intracranial abnormality. Reviewed, Interpreted and Dictated by Asim Cardona III, MD Transcribed by Wanda Villela Authenticated and [facility]
--- NOTE | 2023-03-03 08:53 | CT_ITS ---
FINAL REPORT TECHNIQUE: Thin section axial CT images of the facial bones and sinuses were obtained without contrast. Coronal reformatted images were also obtained.This study was performed with techniques to keep radiation doses as low as reasonably achievable, (ALARA). Individualized dose reduction techniques using automated exposure control or adjustment of mA and/or kV according to the patient''''s size were employed. CLINICAL HISTORY: migraine FINDINGS: There is total opacification of the left maxillary sinus with opacification of multiple ethmoid air cells and the left frontal sinus. There is erosion of the left uncinate process and medial wall of the left maxillary sinus. Soft tissue extends to the left nasal cavity, may represent chronic sinusitis or antrochoanal polyp or other soft tissue mass. There is leftward nasal septal deviation with a left-sided nasal septal spur. IMPRESSION: Sinusitis as above. Reviewed, Interpreted and Dictated by Asim Cardona III, MD Transcribed by Wanda Villela Authenticated and [facility]
--- NOTE | 2023-03-03 08:56 | PC.NURSE ---
pt gone to CT via W/C
[2023-03-03 08:57] LABS: Basophils # 0.1 K/mm3 (0-0.2); Basophils % 0.3 % (0.1-2.0); Eosinophils # 0.2 K/mm3 (0.0-0.4); Eosinophils % 1.5 % (0.1-12.0); Hematocrit 43.2 % (42.0-52.0); Hemoglobin 13.7 g/dL (14.1-18.0); Lymphocytes # 1.5 K/mm3 (0.7-4.5); Lymphocytes % 10.5 % (10-50); Mean Corpuscular HGB Conc 31.8 g/dL (31.8-35.4); Mean Corpuscular Hemoglobin 26.4 pg (27.0-31.2); Mean Corpuscular Volume 82.9 fl (80-94); Mean Platelet Volume 7.8 fl (7.4-10.4); Monocytes # 0.6 K/mm3 (0.1-1.0); Monocytes % 4.2 % (1.7-9.3); Neutrophils # 12.2 K/mm3 (1.8-7.8); Neutrophils % 83.5 % (37.0-80.0); Platelet Count 269 K/mm3 (142-424); Red Blood Count 5.21 M/mm3 (4.60-6.20); White Blood Count 14.6 K/mm3 (4.8-10.8)
[2023-03-03 09:03] LABS: Sodium 139 mmol/L (136-145)
--- NOTE | 2023-03-03 09:04 | HMH.EDHA ---
Discharge Plan Disposition Chief Complaint: Headache Prescriptions Prescriptions: New cefuroxime axetil 500 mg tablet 500 mg PO BID 10 Days Qty: 20 0RF methylprednisolone [Medrol (Tanner)] 4 mg tablets,dose pack 4 mg PO DAILY Qty: 21 0RF (DME) nebulizer and compressor Device See Rx Instructions .Route Qty: 1 0RF Rx Instructions: As directed (DME) nebulizer accessories Kit See Rx Instructions .Route Qty: 1 0RF Rx Instructions: As directed No Action methadone 40 mg Tablet,Soluble 100 mg PO DAILY ondansetron 4 mg tablet,disintegrating 4 mg PO TID PRN (Reason: nausea and vomiting) 5 Days Qty: 15 0RF naproxen [Naprosyn] 500 mg tablet 500 mg PO BID PRN (Reason: pain) Qty: 20 0RF Referrals Follow up/Referrals: Richard Best MD [Primary Care Provider] - See instructions Discharge ED Provider: Ti Hawk Headache HPI General Chief Complaint: Headache Stated Complaint: Persistant headache Time Seen by Provider: 03/03/23 08:53 Mode of Arrival: Ambulatory Source of Information: Patient Limitations: No Limitations Description of Symptoms (Recalled from ER Triage Doc. by RN): 52 yo M presents to ED with c/o migraine. pt was seen here yesterday for same issues. pt reports that when he left ED yesterday his migraine had improved, this am when he woke up his migraine was back around 0400. History of Present Illness HPI Narrative: 52-year-old white male presents with a 4-day headache. He was seen yesterday in the emergency department also with a headache. He reports that the headache is pounding in character and that he normally does not have headaches. Is medical allergies include penicillin and medical problems include diabetes type 1 0.5. Related Data Home Medications Medication Instructions Recorded Confirmed methadone 40 mg soluble tablet 100 mg PO DAILY Chronic narcotic 03/02/23 03/03/23 abuse Previous Rx's Medication Instructions Recorded naproxen 500 mg tablet (Naprosyn) 500 mg PO BID PRN pain #20 tabs 03/02/23 ondansetron 4 mg disintegrating 4 mg PO TID PRN nausea and 03/02/23 tablet vomiting 5 days #15 tabs cefuroxime axetil 500 mg tablet 500 mg PO BID 10 days #20 tabs 03/03/23 methylprednisolone 4 mg tablets in 4 mg PO DAILY #21 tabs 03/03/23 a dose pack (Medrol (Tanner)) nebulizer accessories #1 ea 03/03/23 nebulizer and compressor #1 ea 03/03/23 Allergies Allergy/AdvReac Type Severity Reaction Status Date / Time Penicillins [PENICILLINS] AdvReac Intermediate Rash Verified 03/02/23 13:25 [facility] History Hepatitis A Screen Attestation statement:: This patient has been screened for Hepatitis A risk factors. I have reviewed the patient's past medical history: Yes Medical History: Reports: Dementia, Diabetes Mellitus Type 1 and Diabetes Mellitus Type 2 Comment: CELLULITIS OF FACE Laterality Cases: Left: Arthroscopy Shoulder Other Surgeries: Yes No Previous Surgery, Cholecystectomy and Other Amputation: No Fractures: No Comment: choleycystectomy Social History Smoking Status: Current every day smoker Tobacco Type: cigarettes # Packs/Day (cigarettes): 1 Alcohol Intake: never Substance Use Type: denies use Occupational Status: unemployed Housing: house Household Members: family Family Hx:: Diabetes and Heart Attack Comment: COPD [facility] Disclaimer: The information contained in this section may have been updated after the patient was seen, as this information can be updated by other users. Medical History (Updated 03/02/23 @ 15:19 by Tao Miles MD) Diabetes mellitus, type 2 Surgical History History of cholecystectomy History of shoulder surgery Social History Smoking Status: Current every day smoker tobacco type: cigarettes packs per day: 1 alcohol intake: never substance use type: denies use current oc
[2023-03-03 09:06] LABS: Alanine Aminotransferase 22 U/L (12-78); Albumin Level 4.1 g/dl (3.5-5.0); Albumin/Globulin Ratio 1.1 (1.1-1.8); Alkaline Phosphatase 126 U/L (38-126); Anion Gap 12.2 mEq/L (5-15); Aspartate Amino Transferase 30 U/L (17-59); Bilirubin,Total 0.5 mg/dl (0.2-1.3); Blood Urea Nitrogen 16 mg/dl (9-20); Calcium 8.8 mg/dl (8.4-10.2); Carbon Dioxide 30 mmol/L (22.0-30.0); Chloride 101 mmol/L (98-107); Creatinine Clearance Estimated 128 mL/min (50-200); Estimated Glomerular Filt Rate 79 ml/min (>60); GFR (African American) 96 ML/MIN (>60); Globulin 3.6 g/dL (1.3-3.2); Glucose 126 mg/dl (74-100); Potassium 4.2 mmoL/L (3.5-5.1); Total Protein,Serum 7.7 g/dl (6.3-8.2)
[2023-03-03 09:30] VITALS: BP 176/64
--- NOTE | 2023-03-03 09:40 | PC.NURSE ---
rounded on pt, states his head is still hurting, updated pt that MD wanted to wait on CT results before giving any medicines.
[2023-03-03 10:00] VITALS: BP 157/66; PULSE 54; O2SAT 95
--- NOTE | 2023-03-03 10:08 | PC.NURSE ---
LUCIA barrera was speaking with ENT about this pt.
[2023-03-03 11:01] VITALS: BP 158/64; PULSE 57; RESP 16; TEMP 36.7
== END 2023-03-03 11:03 | disposition home or self-care (01) ==
PROVIDERS: Emergency Provider Emergency Medicine; PCP Emergency Medicine
DX: R51.9 Headache, unspecified (principal); E11.9 Type 2 diabetes mellitus without complications; F17.210 Nicotine dependence, cigarettes, uncomplicated
CPT/HCPCS: 70450; 70486; 80053; 85025; 96365; 96375; 99284; 99285; J0696; J2405

== ENCOUNTER 2023-10-06 11:22 | Emergency (ER) | payer OTHER, SELFPAY ==
[2023-10-06 11:51] VITALS: BP 136/78; PULSE 76; RESP 19; TEMP 37; O2SAT 99; BMI 30.7
--- NOTE | 2023-10-06 12:10 | ED_ITS ---
Discharge Plan Disposition Patient Disposition: Home, Self-Care Condition: Good Prescriptions Prescriptions: New oseltamivir [Tamiflu] 75 mg capsule 75 mg PO Q12H 5 Days Qty: 10 0RF No Action fluticasone propionate [Flonase Allergy Relief] 50 mcg/actuation spray,suspension 2 spray intranasal DAILY Qty: 16 4RF Rx Instructions: administer into each nostril montelukast [Singulair] 10 mg tablet 10 mg PO HS Qty: 30 3RF methadone 40 mg Tablet,Soluble 100 mg PO DAILY ondansetron 4 mg tablet,disintegrating 4 mg PO TID PRN (Reason: nausea and vomiting) 5 Days Qty: 15 0RF naproxen [Naprosyn] 500 mg tablet 500 mg PO BID PRN (Reason: pain) Qty: 20 0RF cefuroxime axetil 500 mg tablet 500 mg PO BID 10 Days Qty: 20 0RF Referrals Follow up/Referrals: Ti Yancey DO [Primary Care Provider] - See instructions Activity Restrictions/Add. Instructions Additional Instructions/Restrictions: * Start Tamiflu today if you are going to take it. Discussed risk and possible benefits. * Lots of rest * Increase Fluids water, Gatorade, powerade, pedialyte,if infant/toddler/child * Alternate Tylenol and / or ibuprofen as discussed for fever, aches, chills Follow up IMMEDIATELY with your family doctor for new or worsening Symptoms OR no noticeable improvement over the next 48-72 hours, 911 for difficulty or breathing * You or your child area contagious until no fever, aches, chills for 24 hours with medication for symptoms * Help Prevent the spread of influenza: * ?Wash your hands often. Use soap and water. Wash your hands after you use the bathroom, change a child's diapers, or sneeze. Wash your hands before you prepare or eat food. Use gel hand cleanser that has 60% alcohol, when soap and water are not available. Do not touch your eyes, nose, or mouth unless you have washed your hands first. * Cover your mouth when you sneeze or cough. Cough into a tissue or the bend of your arm. If you use a tissue, throw it away immediately and wash your hands. * Clean shared items with a germ-killing opening machine cleaner. Clean table surfaces, doorknobs, and light switches. Do not share towels, silverware, and dishes with people who are sick. Wash bed sheets, towels, silverware, and dishes with soap and water. * Wear a mask over your mouth and nose if you are sick. The face mask may help protect others from becoming infected with the flu. Wear the mask when in common areas of your home or if you seek care with a healthcare provider. * Stay away from others if you are sick. Stay at home until 24 hours after your fever and symptoms are gone. Clinical Impressions Clinical Impression: Influenza Instructions Patient Instructions: DI for Influenza -- Adult, Oseltamivir Discharge ED Provider: Ema Renae [facility] [place] HPI General Stated complaint: cough,body aches Mode of Arrival: Ambulatory Source of Information: Patient Limitations: No Limitations Time Seen by Provider: 10/06/23 12:10 Description of Symptoms (Recalled from Triage Doc. by RN): Patient reports aching all over, cough and sore throat since yesterday. HEENT Symptoms (Recalled from RN notes): Yes Resp Symptoms (Recalled from RN notes): No Skin Symptoms (Recalled from RN notes): No MS Symptoms (Recalled from RN notes): No Functional Status (Recalled from RN notes): wnl History of Present Illness Provider Complaint: Patient states that he has been having body aches, chills, achy all over cough and scratchy throat since yesterday States that his son has similar symptoms so he came in to get checked Related Data Home Medications Medication Instructions Recorded Confirmed methadone 40 mg soluble tablet 100 mg PO DAILY Chronic narcotic 03/02/23 03/03/23 abuse Previous Rx's Medication Instructions Recorded naproxen 500 mg tablet (Naprosyn) 500 mg PO BID PRN pain #20 tabs 03/02/23 ondansetron 4 mg disintegrating 4 mg PO TID PRN nausea and 03/02/23 tablet vomiting 5 days #15 tabs cefuroxime axetil 500 mg tablet 500 mg PO BID 10 days #20 tabs 03/03/23 fluticasone propionate 50 2 spray intranasal DAILY allergy 03/11/23 mcg/actuation nasal symptoms #16 grams spray,suspension (Flonase Allergy Relief) montelukast 10 mg tablet 10 mg PO HS #30 tabs 03/11/23 (Singulair) oseltamivir 75 mg capsule (Tamiflu) 75 mg PO Q12H 5 days #10 caps 10/06/23 Allergies Allergy/AdvReac Type Severity Reaction Status Date / Time Penicillins [PENICILLINS] AdvReac Intermediate Rash Verified 03/11/23 15:19 Worker's Comp Is this a Worker's Comp case?: No [facility] Disclaimer: The information contained in this section may have been updated after the patient was seen, as this information can be updated by other users. Medical History Diabetes mellitus, type 2 Surgical History History of cholecystectomy History of shoulder surgery Social History Smoking Status: Current every day smoker tobacco type: cigarettes packs per day: 1 alcohol intake: never substance use type: denies use current occupational status: unemployed Travel in the last 8 weeks: None household members: family housing: house ROS Obtained: Yes All systems reviewed & no additional complaints except as documented and Yes Systems reviewed as appropriate & no additional complaints except as documented Constitutional Constitutional: Reports system reviewed and no additional complaints, except as documented, Reports as per HPI, Reports body ache and Reports chills ENT Ears, Nose, Mouth, and Throat: Reports system reviewed and no additional complaints, except as documented, Reports as per HPI, Reports nasal congestion and Reports sore throat Cardiovascular Cardiovascular: Reports system reviewed and no additional complaints, except as documented and Reports as per HPI Respiratory Respiratory: Reports system reviewed and no additional complaints, except as documented, Reports as per HPI and Reports cough Gastrointestinal Gastrointestingal: Reports system reviewed and no additional complaints, except as documented and as per HPI Physical Exam General General appearance: alert and in no apparent distress ENT ENT exam: Present mucous membranes moist Expanded ENT Exam Nose exam: Absent sinus tenderness Throat exam: Present tonsillar erythema Respiratory Respiratory exam: Present normal lung sounds bilaterally; Absent respiratory distress or wheezes Cardiovascular Cardiovascular exam: Present regular rate, normal rhythm and normal heart sounds Neurological Exam Neurological exam: Present alert, oriented X3 and normal gait Medical Decision Making Dixon Inquiry Pt receiving controlled substance: No Dixon was queried for this patient: No Vital Signs: 10/06/23 11:51 Temperature 98.6 F Temperature Source Oral Pulse Rate [Radial] 76 Respiratory Rate 19 Blood Pressure [Right Arm] 136/78 Blood Pressure Mean [Right Arm] 97 Blood Pressure Source [Right Arm] Automatic Cuff Blood Pressure Position [Right Arm] Sitting 02 Sat by Pulse Oximetry 99 Oxygen Delivery Method Room Air Lab Data Lab results reviewed: Yes I reviewed the patient's lab results.
[2023-10-06 12:19] LABS: UTC Influenza A Antigen Negative (Negative); UTC Influenza B Antigen Positive (Negative); UTC Strep Screen (Rapid) Negative (Negative)
[2023-10-06 12:22] VITALS: BP 136/78; PULSE 76; RESP 19; TEMP 37; O2SAT 99
== END 2023-10-06 12:23 | disposition home or self-care (01) ==
PROVIDERS: Emergency Provider Nurse Practitioner; PCP Internal Medicine
DX: J10.1 Influenza due to other identified influenza virus with other respiratory manifestations (principal); R05.9 Cough, unspecified; R68.83 Chills (without fever); R07.0 Pain in throat; M79.18 Myalgia, other site; F17.210 Nicotine dependence, cigarettes, uncomplicated
CPT/HCPCS: 87804; 87880; 99212; 99214; G0463

== ENCOUNTER 2023-11-22 07:53 | Observation (INO) | payer OTHER, SELFPAY ==
[2023-11-22] VITALS (21 sets, daily range): BP systolic 87–163; BP diastolic 58–82; PULSE 60–80; RESP 16–18; TEMP 36.6–36.8; O2SAT 90–98; BMI 30.2; BMI 29.8
--- NOTE | 2023-11-22 07:51 | ECG_ITS ---
APPROVED REPORT Exam: Resting ECG HR:73 bpm ECG Measurements Heart Rate 73 AXES IN 175 P 72 QRSd 122 QRS 4 QT 424 T 59 QTc 450 Conclusion SINUS RHYTHM RIGHT BUNDLE BRANCH BLOCK [120+ ms QRS DURATION, UPRIGHT V1, 40+ ms S IN I/aVL/V4/V5/V6] Electronically signed by : MAMIE MARTINO, 11/22/2023 15:57:49
--- NOTE | 2023-11-22 07:55 | PC.NURSE ---
Dr. Calhoun at [facility] for pt eval
--- NOTE | 2023-11-22 07:58 | XR_ITS ---
FINAL REPORT CLINICAL HISTORY: Precordial chest pain COMPARISON: 04/28/2021 FINDINGS: A portable view of the chest was obtained. Cardiac and mediastinal silhouettes are within normal limits. The lungs are clear. There is no pleural effusion or pneumothorax. IMPRESSION: No acute process on this portable exam. Reviewed, Interpreted and Dictated by Nereida Cunningham MD Transcribed by Brianda Cartwright Authenticated and [facility]
[2023-11-22] MEDS: ASPIRIN 81MG CHEWABLE TABLET 324 MG PO (08:16)
[2023-11-22 08:22] LABS: Basophils # 0.1 K/mm3 (0-0.2); Basophils % 1.4 % (0.1-2.0); Eosinophils # 0.2 K/mm3 (0.0-0.4); Eosinophils % 2.8 % (0.1-12.0); Hematocrit 46.4 % (42.0-52.0); Hemoglobin 15.1 g/dL (14.1-18.0); Lymphocytes # 2.1 K/mm3 (0.7-4.5); Lymphocytes % 27.8 % (10-50); Mean Corpuscular HGB Conc 32.6 g/dL (31.8-35.4); Mean Corpuscular Hemoglobin 28.3 pg (27.0-31.2); Mean Corpuscular Volume 87.1 fl (80-94); Mean Platelet Volume 8.3 fl (7.4-10.4); Monocytes # 0.6 K/mm3 (0.1-1.0); Monocytes % 7.3 % (1.7-9.3); Neutrophils # 4.7 K/mm3 (1.8-7.8); Neutrophils % 60.6 % (37.0-80.0); Platelet Count 241 K/mm3 (142-424); Red Blood Count 5.34 M/mm3 (4.60-6.20); White Blood Count 7.7 K/mm3 (4.8-10.8)
--- NOTE | 2023-11-22 08:25 | ED_ITS ---
Discharge Plan Disposition Patient Disposition: Admitted Clinical Impressions Clinical Impression: Elevated troponin Chest pain Qualifiers: Chest pain type: unspecified Qualified Code(s): R07.9 - Chest pain, unspecified Discharge ED Provider: Arely Calhoun HPI General Chief Complaint: Chest Pain Stated Complaint: cp Time Seen by Provider: 11/22/23 07:54 Mode of Arrival: Ambulatory Source of Information: Patient Limitations: No Limitations Description of Symptoms (Recalled from ER Triage Doc. by RN): pt states he woke up around 0500 and was having L chest pain. pt states the pain has not changed since then. pt reports the pain is dull in nature, 3/10, and does not radiate. pt denies any heart history. pt states the only medication he has taken this AM was methadone, nothing for the chest pain. pt also states he has a history of DM and surgical removal of his gallbladder. History of Present Illness HPI narrative: This patient is a 53-year-old male who has history of opioid dependence on methadone as well as type 2 diabetes presenting with concern for chest pain. Patient reports that this morning around 5:00 he was sitting at the table when he started having left-sided substernal chest pain that is nonradiating. He describes it as a dull ache. Nothing seems to make it better or worse. He denies experiencing like this in the past. He denies any history of cardiac issues in himself, but he notes he has extensive cardiac history in his family history. He denies any associated symptoms, such as fevers, chills, cough, congestion, sore throat, shortness of breath, abdominal pain, nausea, vomiting, or other issues Related Data Home Medications Medication Instructions Recorded Confirmed methadone 40 mg soluble tablet 100 mg PO DAILY Chronic narcotic 03/02/23 11/22/23 abuse Allergies Allergy/AdvReac Type Severity Reaction Status Date / Time Penicillins [PENICILLINS] AdvReac Intermediate Rash Verified 11/22/23 08:21 [facility] Disclaimer: The information contained in this section may have been updated after the patient was seen, as this information can be updated by other users. Medical History Diabetes mellitus, type 2 Surgical History History of shoulder surgery History of cholecystectomy Family History (Updated 11/22/23 @ 14:43 by Ema Kelly RN) Other No significant family history Social History (Updated 11/22/23 @ 14:48 by Ema Kelly RN) Smoking Status: Current every day smoker tobacco type: cigarettes packs per day: 1 alcohol intake: never substance use type: denies use current occupational status: unemployed Travel in the last 8 weeks: None household members: family housing: house ROS Obtained: Yes All systems reviewed & no additional complaints except as documented Physical Exam General General appearance: alert and in no apparent distress Head Head exam: atraumatic and normocephalic Eye Eye exam: Present normal appearance, PERRL and EOMI ENT ENT exam: Present normal exam, normal oropharynx, mucous membranes moist and normal external ear exam Neck Neck exam: Present normal inspection, full ROM and trachea midline; Absent tenderness Chest Chest inspection: Present normal inspection and symmetric chest wall rise; Absent tenderness Respiratory Respiratory exam: Present normal lung sounds bilaterally; Absent respiratory distress, wheezes, stridor or accessory muscle use Cardiovascular Cardiovascular exam: Present regular rate and normal rhythm Abdominal Exam Abdominal exam: Present soft; Absent distention, tenderness or guarding Extremities Exam Extremities exam: Present normal inspection, full ROM and normal capillary refill; Absent tenderness or edema Back Exam Back exam: Present normal inspection and full ROM; Absent tenderness Neurological Exam Neurological exam: Present alert, oriented X3, CN II-XII intact and normal gait; Absent motor sensory deficit Psychiatric Psychiatric exam: Present normal affect and normal mood Skin Skin exam: Present warm and dry HEART Score HEART Score HEART Score assessment performed?: Yes History (anamnesis): Moderately suspicious ECG: Non-specific disturbance Age: 45-65 years Risk factors: 1-2 risk factors Troponin: </= normal limit HEART Score: 4 Critical Care Critical Care Time Critical Care Time: No Medical Decision Making Medical Records Medical records reviewed: Yes I reviewed the patient's medical records. [place] Inquiry Pt receiving controlled substance: No Vital Signs Vital Signs: 11/22/23 08:16 11/22/23 08:16 11/22/23 08:31 Temperature 98 F Temperature Source Oral Pulse Rate 80 64 Pulse Rate [Left] 77 Respiratory Rate 18 Blood Pressure 132/74 128/58 L Blood Pressure [Right Arm] 163/72 H Blood Pressure Mean 93 91 Blood Pressure Mean [Right Arm] 102 Blood Pressure Source [Right Arm] Automatic Cuff Blood Pressure Position [Right Arm] Sitting 02 Sat by Pulse Oximetry 96 96 96 Oxygen Delivery Method Room Air Room Air Room Air 11/22/23 09:01 11/22/23 09:30 11/22/23 10:00 Temperature Temperature Source Pulse Rate 70 61 64 Pulse Rate [Left] Respiratory Rate Blood Pressure 111/60 97/64 L 111/62 Blood Pressure [Right Arm] Blood Pressure Mean 77 76 74 Blood Pressure Mean [Right Arm] Blood Pressure Source [Right Arm] Blood Pressure Position [Right Arm] 02 Sat by Pulse Oximetry 95 96 94 L Oxygen Delivery Method Room Air Room Air Room Air 11/22/23 10:30 11/22/23 13:19 11/22/23 13:28 Temperature 98.0 F 98 F Temperature Source Oral Pulse Rate 61 77 Pulse Rate [Left] 75 Respiratory Rate 18 17 Blood Pressure 123/60 120/62 Blood Pressure [Right Arm] 123/60 Blood Pressure Mean Blood Pressure Mean [Right Arm] 81 Blood Pressure Source [Right Arm] Automatic Cuff Blood Pressure Position [Right Arm] 02 Sat by Pulse Oximetry 96 92 L Oxygen Delivery Method Room Air Room Air Room Air Lab Data Labs: Lab Results 11/22/23 08:10: WBC 7.7, RBC 5.34, Hgb 15.1, Hct 46.4, MCV 87.1, MCH 28.3, MCHC 32.6, RDW 15.0, Plt Count 241, MPV 8.3, Neut % (Auto) 60.6, Lymph % (Auto) 27.8, [place] % (Auto) 7.3, Eos % (Auto) 2.8, Baso % (Auto) 1.4, Neut # (Auto) 4.7, Lymph # (Auto) 2.1, [place] # (Auto) 0.6, Eos # (Auto) 0.2, Baso # (Auto) 0.1, Sodium 140, Potassium 4.0, Chloride 106, Carbon Dioxide 28, Anion Gap 10.0, BUN 13, Creatinine 0.80, Estimated Creat Clear 144, Estimated GFR 102, Est GFR ( Amer) 123, Glucose 127 H, Hemoglobin A1c 5.7, Calcium 9.3, Total Bilirubin 0.7, AST 33, ALT 20, Alkaline Phosphatase 73, Troponin I 0.03, Total Protein 7.8, Albumin 4.5, Globulin 3.3 H, Albumin/Globulin Ratio 1.4, Triglycerides 135, C holesterol 260 H, LDL Cholesterol Direct 166.98 H, VLDL Cholesterol 27, HDL Cholesterol 30 L, Cholesterol/HDL Ratio 8.7 H, Lipase 59, TSH 1.46 11/22/23 10:57: Troponin I 0.04 H 11/22/23 08:10 11/22/23 08:10 Response Orders (Tests/Meds): ED MEDICATIONS Generic Name Dose Route Start Last Admin Trade Name Freq PRN Reason Stop Dose Admin Aspirin 81 mg 11/23/23 09:00 Aspirin 81mg Chewable Tablet PO 12/23/23 08:59 DAILY REMEDIOS Atorvastatin Calcium 40 mg 11/22/23 21:00 Atorvastatin 40mg Tablet PO 12/22/23 20:59 HS [facility] Empagliflozin 10 mg 11/23/23 09:00 Empagliflozin 10mg Tablet PO 12/23/23 08:59 DAILY [facility] Fentanyl Citrate 25 mcg 11/22/23 13:41 11/22/23 15:06 Fentanyl 100mcg/2ml Vial IV 11/23/23 01:42 50 mcg Q3MINP PRN Administration Moderate to Severe Pain (4-10) Fentanyl Citrate 50 mcg 11/22/23 13:41 Fentanyl 250mcg/5ml Vial IV 11/23/23 01:42 Q3MINP PRN Moderate to Severe Pain (4-10) Fentanyl Citrate 25 mcg 11/22/23 13:41 Fentanyl 250mcg/5ml Vial IV 11/23/23 01:42 Q3MINP PRN Moderate to Severe Pain (4-10) Fentanyl Citrate 50 mcg 11/22/23 13:41 Fentanyl 100mcg/2ml Vial IV 11/23/23 01:42 Q3MINP PRN Moderate to Severe Pain (4-10) Fentanyl Citrate 50 mcg 11/22/23 14:07 Fentanyl 100mcg/2ml Vial IV 11/23/23 02:08 Q3MINP PRN Moderate to Severe Pain (4-10) Fentanyl Citrate 25 mcg 11/22/23 14:07 Fentanyl 250mcg/5ml Vial IV 11/23/23 02:08 Q3MINP PRN Moderate to Severe Pain (4-10) Fentanyl Citrate 50 mcg 11/22/23 14:07 Fentanyl 250mcg/5ml Vial IV 11/23/23 02:08 Q3MINP PRN Moderate to Severe Pain (4-10) Fentanyl Citrate 25 mcg 11/22/23 14:07 Fentanyl 100mcg/2ml Vial IV 11/23/23 02:08 Q3MINP PRN Moderate to Severe Pain (4-10) Flumazenil 0.2 mg 11/22/23 13:41 Flumazenil 0.1mg/Ml 5ml Vial IV 11/23/23 01:42 NEEDED PRN Sedation Flumazenil 0.2 mg 11/22/23 14:07 Flumazenil 0.1mg/Ml 5ml Vial IV 11/23/23 02:08 NEEDED PRN Sedation Heparin Sodium (Porcine) 10,000 unit 11/22/23 14:07 11/22/23 15:01 Heparin 1,000 Units/Ml 10ml Vial (Soaping Machine Back Tender) IV 11/22/23 18:08 9,200 unit NEEDED PRN Administration 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 Operator Hydralazine HCl 20 mg 11/22/23 14:07 Hydralazine 20mg/Ml Vial IV 11/22/23 18:08 ONCE PRN sbp>160 Adenosine 180 mg/ Sodium 90 mls @ 495.391 mls/hr 11/22/23 14:07 Chloride IV 11/22/23 18:08 ONCE PRN fractional flow reserve 180 MCG/KG/MIN Adenosine 90 mg/ Sodium 90 mls @ 990.781 mls/hr 11/22/23 14:07 Chloride IV 11/22/23 18:08 ONCE PRN fractional flow reserve 180 MCG/KG/MIN Sodium Chloride 1,000 mls @ 25 mls/hr 11/22/23 14:15 11/22/23 14:25 Sod Chloride 0.9% 500ml Bag IV 11/23/23 14:08 25 mls/hr .Q25H REMEDIOS Administration Labetalol HCl 20 mg 11/22/23 14:07 Labetalol 20mg/4ml Syringe IV 11/22/23 18:08 ONCE PRN sbp>160 Midazolam HCl 1 mg 11/22/23 13:41 11/22/23 15:05 Midazolam Hcl 1mg/1ml 5ml Vial IV 11/23/23 01:42 2 mg Q3MINP PRN Administration Sedation Midazolam HCl 1 mg 11/22/23 13:41 Midazolam 2mg/2ml Vial IV 11/23/23 01:42 Q3MINP PRN Sedation Midazolam HCl 1 mg 11/22/23 14:07 Midazolam 2mg/2ml Vial IV 11/23/23 02:08 Q3MINP PRN Sedation Midazolam HCl 1 mg 11/22/23 14:07 Midazolam Hcl 1mg/1ml 5ml Vial IV 11/23/23 02:08 Q3MINP PRN Sedation Naloxone HCl 0.4 mg 11/22/23 13:41 Naloxone 0.4mg/Ml Vial IV 11/23/23 01:42 Q5MINP PRN Decreased Respirations Naloxone HCl 0.4 mg 11/22/23 14:07 Naloxone 0.4mg/Ml Vial IV 11/23/23 02:08 Q5MINP PRN Decreased Respirations Nitroglycerin 800 mcg 11/22/23 14:07 11/22/23 14:25 Nitroglycerin 800mcg/8ml Syr (Soaping Machine Back Tender) IA 11/22/23 18:08 800 mcg NEEDED PRN Administration 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 Operator Protamine Sulfate 50 mg 11/22/23 14:07 Protamine Sulfate 50mg/5ml Vial (Soaping Machine Back Tender) IV 11/22/23 18:08 ONCE PRN act>200 Sodium Chloride 10 ml 11/22/23 14:07 Sodium Chloride 0.9% 10ml Flush Syringe IV 12/22/23 14:06 NEEDED PRN Maintain IV Site Discontinued Medications Generic Name Dose Route Start Last Admin Trade Name Freq PRN Reason Stop Dose Admin Aspirin 324 mg 11/22/23 07:58 11/22/23 08:16 Aspirin 81mg Chewable Tablet PO 11/22/23 07:59 324 mg ONCE ONE Administration Diphenhydramine HCl 50 mg 11/22/23 14:07 11/22/23 14:24 Diphenhydramine 50mg/Ml Vial IV 11/22/23 14:08 50 mg ONCE ONE Administration Heparin Sodium/Sodium Chloride 3,000 unit 11/22/23 14:07 11/22/23 14:25 Heparin 1,000 Units/500ml Ns (Soaping Machine Back Tender) IV 11/22/23 14:08 3,000 unit ONCE ONE Administration Iopamidol 110 ml 11/22/23 15:22 11/22/23 15:23 Iopamidol-370 (76%);100ml Bottle IV 11/22/23 15:23 110 ml ONCE ONE Administration Lidocaine HCl 20 ml 11/22/23 14:07 11/22/23 14:25 Lidocaine 1% 10ml Mdv IJ 11/22/23 14:08 10 ml ONCE ONE Administration Lidocaine HCl 20 ml 11/22/23 14:07 Lidocaine 1% 5ml Pf Vial IJ 11/22/23 14:08 ONCE ONE Verapamil HCl 2.5 mg 11/22/23 14:07 11/22/23 14:24 Verapamil 2.5mg/Ml 2ml Vial IV 11/22/23 14:08 2.5 mg ONCE ONE Administration ORDERS Category Date Time Status Cardiology Consult [Consult to Cardiology] [CONS] Cons 11/22/23 12:18 Active Routine XR chest portable Stat Exams 11/22/23 07:58 Completed Complete Blood Count Auto Diff AMLAB Lab 11/23/23 06:00 Ordered Complete Blood Count Auto Diff Stat Lab 11/22/23 08:10 Completed Comprehensive Metabolic Panel AMLAB Lab 11/23/23 06:00 Ordered Comprehensive Metabolic Panel Stat Lab 11/22/23 08:10 Completed Hemoglobin A1C Routine Lab 11/22/23 08:10 Completed Lipase Stat Lab 11/22/23 08:10 Completed Lipid Panel Routine Lab 11/22/23 08:10 Completed Magnesium AMLAB Lab 11/23/23 06:00 Ordered TSH [Thyroid Stimulating Hormone] Routine Lab 11/22/23 08:10 Completed Troponin I Q3H Lab 11/22/23 10:57 Completed Troponin I Q3H Lab 11/22/23 14:00 Ordered Troponin I Stat Lab 11/22/23 08:10 Completed ECG Data Tracing #1: Attestation: I reviewed this ECG and interpreted as documented below: ECG Narrative: Normal sinus rhythm with a ventricular rate of 73 bpm. Right bundle branch block noted. No acute ST elevations concerning for STEMI. ECG initial impression date: 11/22/23 ECG initial impression time: 07:52 MDM Narrative Medical Decision Narrative: In summary, this patient is a 53-year-old male presenting to the Emergency Department for evaluation of chest pain. Differential diagnoses considered include but are not limited to ACS, dysrhythmia, GERD, costochondritis, pleuritis, pneumonia, PE. Ruling out the most morbid conditions drove assessment. On exam, the patient is well-appearing with normal vital signs on cardiac telemetry. Cardiopulmonary exam is reassuring. Patient is PERC negative for pulmonary embolus workup included, CMP, troponin, EKG, and chest x-ray. EKG is reassuring without acute STEMI. He does have right bundle branch block noted. Patient was given oral aspirin. I independently interpreted chest x-ray prior to the radiologist read and noted no acute focal consolidation, pneumothorax, or other concern. Please see their read for final interpretation. Labs were obtained that demonstrated negative initial troponin at 0.03 and no other acutely concerning abnormalities. At 0915, patient was placed in ED observation status pending second troponin and reassessment to determine whether or not the patient would be appropriate for discharge versus admission. The patient was provided serial reevaluations and cardiac monitoring while awaiting ultimate disposition. Second troponin resulted and was concerning for slight increase at 0.04. Patient has not had a cardiac workup in the past according to him. Patient denies chest pain at this time and vitals are still reassuring on cardiac telemetry. Given this, I called and had an interactive discussion with Dr. York with cardiology who advised admit the patient for further cardiac workup. I had and after discussion with Dr. Traylor who admitted the patient. The patient was ultimately admitted at 1215pm after 3 hours in ED observation.
[2023-11-22 08:43] LABS: Alanine Aminotransferase 20 U/L (12-78); Albumin Level 4.5 g/dl (3.5-5.0); Albumin/Globulin Ratio 1.4 (1.1-1.8); Alkaline Phosphatase 73 U/L (38-126); Aspartate Amino Transferase 33 U/L (17-59); Bilirubin,Total 0.7 mg/dl (0.2-1.3); Blood Urea Nitrogen 13 mg/dl (9-20); Calcium 9.3 mg/dl (8.4-10.2); Carbon Dioxide 28 mmol/L (22.0-30.0); Chloride 106 mmol/L (98-107); Creatinine Clearance Estimated 144 mL/min (50-200); Estimated Glomerular Filt Rate 102 ml/min (>60); GFR (African American) 123 ML/MIN (>60); Globulin 3.3 g/dL (1.3-3.2); Glucose 127 mg/dl (74-100); Lipase 59 U/L (23-300); Sodium 140 mmol/L (136-145); Total Protein,Serum 7.8 g/dl (6.3-8.2)
[2023-11-22 08:54] LABS: Troponin I 0.03 ng/ml (0.00-0.034)
--- NOTE | 2023-11-22 10:20 | PC.NURSE ---
Rounded on pt. No needs voiced at this time. Call light within reach
--- NOTE | 2023-11-22 10:57 | PC.NURSE ---
Second trop drawn and sent to lab
[2023-11-22 11:34] LABS: Troponin I 0.04 ng/ml (0.00-0.034)
--- NOTE | 2023-11-22 11:46 | PC.NURSE ---
paged for er md
--- NOTE | 2023-11-22 11:50 | PC.NURSE ---
er md tried to call hospitalist for admission no answer
--- NOTE | 2023-11-22 12:21 | EXP.HP ---
[facility] Disclaimer: The information contained in this section may have been updated after the patient was seen, as this information can be updated by other users. Medical History Diabetes mellitus, type 2 Surgical History History of shoulder surgery History of cholecystectomy Social History Smoking Status: Current every day smoker tobacco type: cigarettes packs per day: 1 alcohol intake: never substance use type: denies use current occupational status: unemployed Travel in the last 8 weeks: None household members: family housing: house Meds Home Medications and Allergies Home Medications Medication Instructions Recorded Confirmed Type methadone 40 mg soluble tablet 100 mg PO DAILY Chronic narcotic 03/02/23 03/03/23 History abuse naproxen 500 mg tablet (Naprosyn) 500 mg PO BID PRN pain #20 tabs 03/02/23 Rx ondansetron 4 mg disintegrating 4 mg PO TID PRN nausea and 03/02/23 Rx tablet vomiting 5 days #15 tabs cefuroxime axetil 500 mg tablet 500 mg PO BID 10 days #20 tabs 03/03/23 Rx fluticasone propionate 50 2 spray intranasal DAILY allergy 03/11/23 03/11/23 Rx mcg/actuation nasal symptoms #16 grams spray,suspension (Flonase Allergy Relief) montelukast 10 mg tablet 10 mg PO HS #30 tabs 03/11/23 03/11/23 Rx (Singulair) oseltamivir 75 mg capsule (Tamiflu) 75 mg PO Q12H 5 days #10 caps 10/06/23 Rx New Prescriptions to Start Prescriptions: Allergies Allergy/AdvReac Type Severity Reaction Status Date / Time Penicillins [PENICILLINS] AdvReac Intermediate Rash Verified 11/22/23 08:21 Exam Data for Last 24 hours Vital signs and Labs for Last 24 Hours: Temp Pulse Resp BP Pulse Ox O2 Del Method 98 F 61 18 123/60 96 Room Air 11/22/23 08:16 11/22/23 10:30 11/22/23 08:16 11/22/23 10:30 11/22/23 10:30 11/22/23 10:30 Laboratory Results - last 24 hr 11/22/23 08:10: WBC 7.7, RBC 5.34, Hgb 15.1, Hct 46.4, MCV 87.1, MCH 28.3, MCHC 32.6, RDW 15.0, Plt Count 241, MPV 8.3, Neut % (Auto) 60.6, Lymph % (Auto) 27.8, [place] % (Auto) 7.3, Eos % (Auto) 2.8, Baso % (Auto) 1.4, Neut # (Auto) 4.7, Lymph # (Auto) 2.1, [place] # (Auto) 0.6, Eos # (Auto) 0.2, Baso # (Auto) 0.1, Sodium 140, Potassium 4.0, Chloride 106, Carbon Dioxide 28, Anion Gap 10.0, BUN 13, Creatinine 0.80, Estimated Creat Clear 144, Estimated GFR 102, Est GFR ( Amer) 123, Glucose 127 H, Calcium 9.3, Total Bilirubin 0.7, AST 33, ALT 20, Alkaline Phosphatase 73, Troponin I 0.03, Total Protein 7.8, Albumin 4.5, Globulin 3.3 H, Albumin/Globulin Ratio 1.4, Lipase 59 11/22/23 10:57: Troponin I 0.04 H I & O for Last 24 hours: Intake & Output 11/19/23 11/20/23 11/21/23 11/22/23 23:59 23:59 23:59 23:59 Weight 92.986 kg
--- NOTE | 2023-11-22 12:28 | PC.NURSE ---
I called the HS to request a bed for admission
--- NOTE | 2023-11-22 12:34 | PC.NURSE ---
Admissions notified of admit to room 211 for Chest pain to . OBS
[2023-11-22 12:43] LABS: Chol/HDL Ratio 8.7 (1-3.5); Cholesterol 260 mg/dl (140-200); HDL Cholesterol 30 mg/dl (40-60); Triglycerides 135 mg/dl (30-150); VLDL Cholesterol 27 mg/dL (0-40)
[2023-11-22 12:56] LABS: Direct LDL Cholesterol 166.98 mg/dL (100-129)
[2023-11-22 13:00] LABS: Hemoglobin A1C 5.7 % (4.0-6.0)
[2023-11-22 13:17] LABS: Thyroid Stimulating Hormone 1.46 uIU/mL (0.465-4.68)
--- NOTE | 2023-11-22 13:42 | EXP.CARD.CON ---
History of Present Illness History of Present Illness Consult date: 11/22/23 Requesting physician: Kelvin Traylor Consult reason: chest pain Chief complaint: chest pain Additional Medical History:: 1. Tobacco use 2. DM A. Hgb A1c 5.7 on 11/22/2023 3. FH of CAD in father in his 50/60's 4. Obesity 5. Hyperlipidemia A. LDL 167 on 11/22/2023 History of present illness: 53 yo admitted for CP today with positive troponins. Symptoms resolved after ASA. EKG is sinus, RBBB without acute elevation. CXR negative CRF of Tobacco use, DM and FH. [facility] Disclaimer: The information contained in this section may have been updated after the patient was seen, as this information can be updated by other users. Medical History Diabetes mellitus, type 2 Surgical History History of shoulder surgery History of cholecystectomy Family History (Updated 11/22/23 @ 14:43 by Ema Kelly RN) Other No significant family history Social History (Updated 11/22/23 @ 14:48 by Ema Kelly RN) Smoking Status: Current every day smoker tobacco type: cigarettes packs per day: 1 alcohol intake: never substance use type: denies use current occupational status: unemployed Travel in the last 8 weeks: None household members: family housing: house Review of Systems Review of Systems Review of systems:: pertinent systems reviewed and negative unless documented below *Cardiovascular Cardiovascular: Reports chest pain and Reports dyspnea on exertion *Respiratory Respiratory: Reports dyspnea on exertion Exam Data for Last 24 hours Vital signs and Labs for Last 24 Hours: Temp Pulse Resp BP Pulse Ox O2 Del Method 98 F 77 17 120/62 92 L Room Air 11/22/23 13:28 11/22/23 13:28 11/22/23 13:28 11/22/23 13:28 11/22/23 13:19 11/22/23 13:28 Laboratory Results - last 24 hr 11/22/23 08:10: WBC 7.7, RBC 5.34, Hgb 15.1, Hct 46.4, MCV 87.1, MCH 28.3, MCHC 32.6, RDW 15.0, Plt Count 241, MPV 8.3, Neut % (Auto) 60.6, Lymph % (Auto) 27.8, [place] % (Auto) 7.3, Eos % (Auto) 2.8, Baso % (Auto) 1.4, Neut # (Auto) 4.7, Lymph # (Auto) 2.1, [place] # (Auto) 0.6, Eos # (Auto) 0.2, Baso # (Auto) 0.1, Sodium 140, Potassium 4.0, Chloride 106, Carbon Dioxide 28, Anion Gap 10.0, BUN 13, Creatinine 0.80, Estimated Creat Clear 144, Estimated GFR 102, Est GFR ( Amer) 123, Glucose 127 H, Hemoglobin A1c 5.7, Calcium 9.3, Total Bilirubin 0.7, AST 33, ALT 20, Alkaline Phosphatase 73, Troponin I 0.03, Total Protein 7.8, Albumin 4.5, Globulin 3.3 H, Albumin/Globulin Ratio 1.4, Triglycerides 135, Cholesterol 260 H, LDL Cholesterol Direct 166.98 H, VLDL Cholesterol 27, HDL Cholesterol 30 L, Cholesterol/HDL Ratio 8.7 H, Lipase 59, TSH 1.46 11/22/23 10:57: Troponin I 0.04 H I & O for Last 24 hours: Intake & Output 11/20/23 11/21/23 11/22/23 11/23/23 11:59 11:59 11:59 11:59 Weight 205 lb 202 lb 4 oz Constitutional Constitutional: no acute distress *Routine Respiratory Exam Respiratory: Present wheezes; Absent crackles *Routine Cardiovascular Exam Cardiovascular: Present RRR; Absent murmur, gallop or rubs Meds Home Medications and Allergies Home Medications Medication Instructions Recorded Confirmed Type methadone 40 mg soluble tablet 100 mg PO DAILY Chronic narcotic 03/02/23 11/22/23 History abuse New Prescriptions to Start Prescriptions: Allergies Allergy/AdvReac Type Severity Reaction Status Date / Time Penicillins [PENICILLINS] AdvReac Intermediate Rash Verified 11/22/23 08:21 Assessment and Plan *Assessment and plan (1) Elevated troponin: Status: Acute Category: Medical Code(s): R79.89 - Other specified abnormal findings of blood chemistry (2) Chest pain: Status: Acute Qualifiers: Chest pain type: unspecified Qualified Code(s): R07.9 - Chest pain, unspecified Category: Medical Code(s): R07.9 - Chest pain, unspecified (3) Diabetes 1.5, managed as type 2: Status: Chronic Category: Medical Code(s): E10.9 - Type 1 diabetes mellitus without complications (4) Tobacco abuse: Status: Acute Category: Medical Code(s): Z72.0 - Tobacco use (5) Hyperlipidemia associated with type 2 diabetes mellitus: Status: Acute Category: Medical Code(s): E11.69 - Type 2 diabetes mellitus with other specified complication; E78.5 - Hyperlipidemia, unspecified (6) Chronic narcotic use: Status: Acute Category: Social Hx Code(s): F11.90 - Opioid use, unspecified, uncomplicated Plan 1. NSTEMI -[facility] today -echo -ASA and statin 2. DM -add jardiance -defer management to Hospitalist 3. Tobacco use -cessation recommended 4. HLD -start statin for LDL 167 5. chronic narcotic use/methadone -complicates all aspects of care 6. Obesity ANGIOGRAPHIC RESULTS The left main artery Has an ostial proximal 20 to 30% stenosis The left anterior descending artery Has proximal luminal irregularities with a proximal tapering of the blood blood vessel which proved to be a 30% atherosclerotic plaque. The remaining vessel had luminal irregularities nothing greater than 10%. The circumflex artery Is large yet still nondominant with diffuse 10 to 20% luminal irregularities The right coronary artery Large dominant with proximal 30 to 40% stenosis along a tortuous bend followed by mid vessel 30% stenosis The ARZATE ventriculogram reveals Normal 65% The left ventricular end-diastolic pressure 20 mmHg IMPRESSION Mild to moderate ostial left main disease Mild to moderate proximal LAD disease Moderate proximal dominant right coronary disease Normal ejection fraction Elevated LVEDP consistent with diastolic dysfunction PLAN 1. Medical management for coronary disease 2. Aggressive risk factor modification with a goal LDL less than 55 to be achieved with high intensity statin 3. Avoidance of tobacco products 4. Recommend sleep study as patient was experiencing episodes of apnea and desaturation during cardiac catheterization which may have been related to sedation however obstructive sleep apnea evaluation still recommended Electronically signed by : Landon York MD 11/22/2023 15:28:06 Recommend observing overnight, getting echo and starting ASA,jardiance and statin.
--- NOTE | 2023-11-22 13:59 | IR_ITS ---
APPROVED REPORT Patient Location: Inpatient Dip Tanker: BUBBA Pineda RT (R) PROCEDURES Left heart catheterization Left ventriculogram Selective coronary angiogram Intravascular ultrasound the proximal LAD Informed consent was obtained prior to the procedure. COMPLICATIONS NONE Estimated Blood Loss: LESS THAN 10 ML TECHNIQUE One percent lidocaine used to anesthetize the right anterior aspect of the wrist. The right radial artery was accessed via the Seldinger technique. A 6 [place] sheath was placed in the right radial artery. 2.5 mg of Verapamil, 800 mcg of nitroglycerin, 1mg Lidocaine and 5000 U Heparin were given through the arterial sheath. The papa catheter and 6 [place] JL 3 guide catheter were also used to perform left heart catheterization, left ventriculogram and selective coronary angiogram. There is angiographic ambiguity in the proximal LAD therefore therapeutic heparin was administered giving a therapeutic ACT and a BMW wire was placed distally into the LAD. Intravascular ultrasound probe was advanced and the LAD was interrogated. The MLA was 7. 2 mm??? in the proximal to mid LAD therefore this lesion was not hemodynamically significant so the procedure was terminated. The apparatus was removed. At the end of the procedure the sheath was removed good hemostasis was achieved using Traclet band, patient was transferred to the postop holding area in stable condition. ANGIOGRAPHIC RESULTS The left main artery Has an ostial proximal 20 to 30% stenosis The left anterior descending artery Has proximal luminal irregularities with a proximal tapering of the blood blood vessel which proved to be a 30% atherosclerotic plaque. The remaining vessel had luminal irregularities nothing greater than 10%. The circumflex artery Is large yet still nondominant with diffuse 10 to 20% luminal irregularities The right coronary artery Large dominant with proximal 30 to 40% stenosis along a tortuous bend followed by mid vessel 30% stenosis The ARZATE ventriculogram reveals Normal 65% The left ventricular end-diastolic pressure 20 mmHg IMPRESSION Mild to moderate ostial left main disease Mild to moderate proximal LAD disease Moderate proximal dominant right coronary disease Normal ejection fraction Elevated LVEDP consistent with diastolic dysfunction PLAN 1. Medical management for coronary disease 2. Aggressive risk factor modification with a goal LDL less than 55 to be achieved with high intensity statin 3. Avoidance of tobacco products 4. Recommend sleep study as patient was experiencing episodes of apnea and desaturation during cardiac catheterization which may have been related to sedation however obstructive sleep apnea evaluation still recommended Electronically signed by : Landon York MD 11/22/2023 15:28:06
[2023-11-22] MEDS: VERAPAMIL 2.5MG/ML 2ML VIAL 2.5 MG IV (14:24)
[2023-11-22] MEDS: diphenhydrAMINE 50MG/ML VIAL 50 MG IV (14:24)
[2023-11-22] MEDS: HEPARIN 1,000 UNITS/500ML NS (CATH LAB) 3000 UNIT IV (14:25)
[2023-11-22] MEDS: 0.9 % SODIUM CHLORIDE 500 ML 25 ML IV (14:25)
[2023-11-22] MEDS: NITROGLYCERIN 800MCG/8ML SYR (CATH LAB) 800 MCG IA (14:25)
[2023-11-22] MEDS: LIDOCAINE 1% 10ML MDV 20 ML IJ (14:25)
--- NOTE | 2023-11-22 14:31 | CA_ITS ---
APPROVED REPORT EXAM: Comprehensive 2D, Doppler, and color-flow Echocardiogram Criminal Legal Assistant: Brittany Cruz RVT Ht: 5 ft 9 in Wt: 202lbs BSA: 2.07 BP: 120/62 mmHg Indications: NSTEMI,ELEVATED TROP,SMOKER,HLD,DM 2D Dimensions LA Volume 62.00 mL LA Volume Index 29.81 mL/m2 (M/F) 16-34 EF AP4 64.10 % GL Strain -19.5 % M-Mode Dimensions RVDd 2.80 cm (0.9-2.6) LA Diam 3.92 cm (1.9-4.0) LVDd 5.25 cm (3.5-5.7) LVDs 3.81 cm (3.5-5.7) IVSd 0.89 cm (0.6-1.1) PWd 0.68 cm (0.6-1.1) EF (Teich) 52.90% FS 27.40% EDV (Teich) 132.40 mL TAPSE 2.40 (<1.7) ESV (Teich) 62.30 mL LV Diastology E Decel Time 200 (160-240 msec) E/A Ratio 1.0 Aortic Valve CHRISTELLE Index 1.10 cm2/m2 AoV Peak Kishor. 142.0 (50-130 cm/s) AO Peak GR. 8.10 mmHg AO Mean GR. 4.10 (<5 mmHg) AO VTI 33.1 (18-25 cm) CHRISTELLE (VTI) 2.34 (2.5-4.5 cm2) Mitral Valve MV E Max Kishor. 87.0 (40-130 cm/s) MV A Velocity 85.0 (40-130 cm/s) E/A Ratio 1.02 MV PHT 59.0 ms Pulmonary Valve PV Peak Velocity 95.0 (50-150 cm/s) Left Ventricle The left ventricle is normal size. The left ventricular systolic function is normal. The left ventricular ejection fraction is within the normal range. There is increased LV wall thickness. There is normal LV segmental wall motion. The left ventricular diastolic function is normal. LVEF is 55%. Right Ventricle The right ventricle is normal size. The right ventricular systolic function is normal. Atria The left atrium size is normal. The right atrium size is normal. There is no Doppler evidence of interatrial shunt. Aortic Valve The aortic valve is mildly thickened, cannot entirely rule out bicuspid aortic valve. There is no aortic valvular stenosis. Trace aortic regurgitation is present. Mitral Valve The mitral valve is normal in structure. No evidence of mitral valve stenosis. Trace mitral regurgitation. Tricuspid Valve The tricuspid valve leaflets are thin and pliable. Trace tricuspid regurgitation. There is insufficient TR jet to estimate RVSP. Pulmonic Valve The pulmonary valve is normal in structure. Trace to mild pulmonic regurgitation. Great Vessels The aortic root is normal in size. The ascending aorta is normal in size. IVC is normal in size and collapses >50% with inspiration. Other Information Study Quality: Fair Conclusion Normal biventricular systolic function. No significant valvular stenosis or regurgitation. Electronically signed by : Mercy Schmitz MD 11/25/2023 11:36:45
[2023-11-22] MEDS: HEPARIN 1,000 UNITS/ML 10ML VIAL (CATH LAB) 10000 UNIT IV (15:01)
[2023-11-22] MEDS: MIDAZOLAM HCL 1MG/1ML 5ML VIAL 1 MG IV (15:05)
[2023-11-22] MEDS: FENTANYL 100MCG/2ML VIAL 25 MCG IV (15:06)
[2023-11-22] MEDS: IOPAMIDOL-370 (76%);100ML BOTTLE 110 ML IV (15:23)
[2023-11-22 15:28] LABS: CATHL Activated Clotting Time 283 SEC (74-125)
[2023-11-22 16:39] LABS: Basophils # 0.1 K/mm3 (0-0.2); Basophils % 1.4 % (0.1-2.0); Eosinophils # 0.3 K/mm3 (0.0-0.4); Eosinophils % 4.1 % (0.1-12.0); Hematocrit 44.5 % (42.0-52.0); Hemoglobin 14.2 g/dL (14.1-18.0); Lymphocytes # 2.6 K/mm3 (0.7-4.5); Lymphocytes % 32.8 % (10-50); Mean Corpuscular HGB Conc 31.8 g/dL (31.8-35.4); Mean Corpuscular Hemoglobin 27.9 pg (27.0-31.2); Mean Corpuscular Volume 87.6 fl (80-94); Mean Platelet Volume 7.8 fl (7.4-10.4); Monocytes # 0.3 K/mm3 (0.1-1.0); Monocytes % 3.7 % (1.7-9.3); Neutrophils # 4.6 K/mm3 (1.8-7.8); Neutrophils % 57.9 % (37.0-80.0); Platelet Count 223 K/mm3 (142-424); Red Blood Count 5.08 M/mm3 (4.60-6.20)
[2023-11-22 16:41] LABS: Chloride 105 mmol/L (98-107); Sodium 141 mmol/L (136-145)
[2023-11-22 16:42] LABS: Potassium 4.2 mmoL/L (3.5-5.1)
[2023-11-22 16:44] LABS: Blood Urea Nitrogen 13 mg/dl (9-20); Creatinine Clearance Estimated 126 mL/min (50-200); Estimated Glomerular Filt Rate 89 ml/min (>60); GFR (African American) 108 ML/MIN (>60)
[2023-11-22 16:45] LABS: Anion Gap 10.2 mEq/L (5-15); Calcium 9.1 mg/dl (8.4-10.2); Carbon Dioxide 30 mmol/L (22.0-30.0); Glucose 99 mg/dl (74-100)
[2023-11-22 16:57] LABS: Troponin I 0.01 ng/ml (0.00-0.034)
[2023-11-22 17:05] LABS: POC Glucose,Bedside 185 (70-110)
--- NOTE | 2023-11-22 18:15 | P.HPDS_ITS ---
General Admission date:: 11/22/23 Discharge date: 11/22/23 *Admission Date: 11/22/23 *Chief complaint: chest pain *History of present illness: Mr. Winkler is a 53-year-old male with tobacco use disorder, hyperlipidemia, chronic opiate dependence (on methadone). He presented to the ER because of onset of chest pain. States he woke up this morning around 5 with left chest pain. Pain did not get better or change. It was dull in nature. No radiation to arm or neck. Took his regular methadone this morning but had no improvement in his chest discomfort. Denies the pain being worse or better with activity or rest. No history of cardiac issues. Extensive history of cardiac issues in his family. No fever, chills, cough, nausea, vomiting, diarrhea. On evaluation in the ER, initial troponin 0.03. Second troponin 0.04. EKG is nonactionable. Given his risk factors, waking him from sleep, cardiology was consulted and recommended admission for evaluation. Patient did receive aspirin in the ER and this resolved his pain. Taken for left heart cath, medicine evaluated after heart cath. Patient's pain is improved at this time. He is stable on room air. Alert and oriented x 4. PFSH [facility] Disclaimer: The information contained in this section may have been updated after the patient was seen, as this information can be updated by other users. Medical History Diabetes mellitus, type 2 Surgical History History of shoulder surgery History of cholecystectomy Family History No significant family history Social History Smoking Status: Current every day smoker tobacco type: cigarettes packs per day: 1 alcohol intake: never substance use type: denies use current occupational status: unemployed Travel in the last 8 weeks: None household members: family housing: house Review of Systems Review of Systems Review of systems (narrative): 14 point review of systems performed, pertinent positives and negatives as per HPI Exam Data for Last 24 hours Vital signs and Labs for Last 24 Hours: Temp Pulse Resp BP Pulse Ox O2 Del Method 98.1 F 68 18 89/61 L 90 L Room Air 11/22/23 17:25 11/22/23 17:55 11/22/23 17:55 11/22/23 17:55 11/22/23 17:55 11/22/23 17:56 Laboratory Results - last 24 hr 11/22/23 08:10: WBC 7.7, RBC 5.34, Hgb 15.1, Hct 46.4, MCV 87.1, MCH 28.3, MCHC 32.6, RDW 15.0, Plt Count 241, MPV 8.3, Neut % (Auto) 60.6, Lymph % (Auto) 27.8, [place] % (Auto) 7.3, Eos % (Auto) 2.8, Baso % (Auto) 1.4, Neut # (Auto) 4.7, Lymph # (Auto) 2.1, [place] # (Auto) 0.6, Eos # (Auto) 0.2, Baso # (Auto) 0.1, Sodium 140, Potassium 4.0, Chloride 106, Carbon Dioxide 28, Anion Gap 10.0, BUN 13, Creatinine 0.80, Estimated Creat Clear 144, Estimated GFR 102, Est GFR ( Amer) 123, Glucose 127 H, Hemoglobin A1c 5.7, Calcium 9.3, Total Bilirubin 0.7, AST 33, ALT 20, Alkaline Phosphatase 73, Troponin I 0.03, Total Protein 7.8, Albumin 4.5, Globulin 3.3 H, Albumin/Globulin Ratio 1.4, Triglycerides 135, Cholesterol 260 H, LDL Cholesterol Direct 166.98 H, VLDL Cholesterol 27, HDL Cholesterol 30 L, Cholesterol/HDL Ratio 8.7 H, Lipase 59, TSH 1.46 11/22/23 10:57: Troponin I 0.04 H 11/22/23 14:51: Activated Clotting Time 283 H* 11/22/23 16:20: WBC 8.0, RBC 5.08, Hgb 14.2, Hct 44.5, MCV 87.6, MCH 27.9, MCHC 31.8, RDW 15.0, Plt Count 223, MPV 7.8, Neut % (Auto) 57.9, Lymph % (Auto) 32.8, Prow[place] % (Auto) 3.7, Eos % (Auto) 4.1, Baso % (Auto) 1.4, Neut # (Auto) 4.6, Lymph # (Auto) 2.6, Prowers # (Auto) 0.3, Eos # (Auto) 0.3, Baso # (Auto) 0.1, Sodium 141, Potassium 4.2, Chloride 105, Carbon Dioxide 30, Anion Gap 10.2, BUN 13, Creatinine 0.90, Estimated Creat Clear 126, Estimated GFR 89, Est GFR ( Amer) 108, Glucose 99 D, Calcium 9.1, Troponin I 0.01 11/22/23 16:57: POC Glucose 185 H I & O for Last 24 hours: Intake & Output 11/19/23 11/20/23 11/21/23 11/22/23 23:59 23:59 23:59 23:59 Intake Total 650 / 650 Balance 650 / 650 Weight 91.739 kg Constitutional Constitutional: no acute distress, average body habitus and cooperative *Routine HEENT Exam Head: Present normocephalic Eye: Present EOMI and PERRL ENT: Present mucous membranes moist *Routine Neck Exam Neck: Present supple; Absent lymphadenopathy Routine Chest/Breast/Axilla Exam Chest wall: Absent tenderness *Routine Respiratory Exam Respiratory: Present CTA bilaterally and rhonchi; Absent wheezes or crackles *Routine Cardiovascular Exam Cardiovascular: Present RRR *Routine Abdominal Exam Abdominal: Present soft and normoactive bowel sounds; Absent tenderness *Routine Rectal Exam Rectal:: deferred *Routine Genitalia Exam Genitalia:: deferred *Routine Extremities Exam Extremities: Absent cyanosis, clubbing or edema *Routine Skin Exam Skin: Present warm; Absent rash *Routine Neurological Exam Neurological: Present alert, oriented X3 and moving all extremities; Absent altered mental status Routine Psychiatric Exam Psychiatric: Present normal affect Meds Home Medications and Allergies Home Medications Medication Instructions Recorded Confirmed Type methadone 40 mg soluble tablet 100 mg PO DAILY Chronic narcotic 03/02/23 11/22/23 History abuse aspirin 81 mg chewable tablet 81 mg PO DAILY 30 days #30 tabs 11/22/23 Rx atorvastatin 40 mg tablet 40 mg PO HS 30 days #30 tabs 11/22/23 Rx empagliflozin 10 mg tablet 10 mg PO DAILY 30 days #30 tabs 11/22/23 Rx (Jardiance) nicotine 21 mg/24 hr daily 1 patch transdermal DAILY #28 ea 11/22/23 Rx transdermal patch New Prescriptions to Start Prescriptions: Kelvin Gaston atorvastatin Layton,Kelvin empagliflozin [Jardiance] Layton,Kelvin nicotine Layton,Kelvin Allergies Allergy/AdvReac Type Severity Reaction Status Date / Time Penicillins [PENICILLINS] AdvReac Intermediate Rash Verified 11/22/23 08:21 Hospital Course Hospital Course Hospital Course: 53-year-old male with extensive tobacco use history and opiate dependence. Developed chest pain. Admitted for evaluation by cardiology. Taken to the Computer Repair Technician with finding of mild to moderate disease in the ostial left main, proximal LAD, proximal dominant RCA. EF normal on ventriculogram. Has some end diastolic dysfunction with elevated left ventricular end-diastolic pressure. Cardiology evaluated and recommended an echo which was obtained after his heart cath. Also recommended initiating aspirin and statin. Started on Lipitor 40 mg nightly, aspirin 81 mg daily. Screen for diabetes, found to have an A1c that is normal at 5.7. Will initiate Jardiance for his cardiac dysfunction and to assist with management of controlling glucose as he has had diabetes in the past with an A1c greater than 8 in 2020. Strong recommendation for risk factor modification. Encouraged tobacco cessation. Initiate nicotine patch 21 mg daily. Continue chronic methadone use. Stable discharge home with close follow-up with cardiology. Findings during cath as follows: IMPRESSION Mild to moderate ostial left main disease Mild to moderate proximal LAD disease Moderate proximal dominant right coronary disease Normal ejection fraction Elevated LVEDP consistent with diastolic dysfunction PLAN 1. Medical management for coronary disease 2. Aggressive risk factor modification with a goal LDL less than 55 to be achieved with high intensity statin 3. Avoidance of tobacco products 4. Recommend sleep study as patient was experiencing episodes of apnea and desaturation during cardiac catheterization which may have been related to sedation however obstructive sleep apnea evaluation still recommended Results Data Completed and Pending Labs on day of discharge: Labs from last 24 hours 11/22/23 11/22/23 11/22/23 16:57 16:20 14:51 WBC 8.0 RBC 5.08 Hgb 14.2 Hct 44.5 MCV 87.6 MCH 27.9 MCHC 31.8 RDW 15.0 Plt Count 223 MPV 7.8 Neut % (Auto) 57.9 Lymph % (Auto) 32.8 Prowers % (Auto) 3.7 Eos % (Auto) 4.1 Baso % (Auto) 1.4 Neut # (Auto) 4.6 Lymph # (Auto) 2.6 Prowers # (Auto) 0.3 Eos # (Auto) 0.3 Baso # (Auto) 0.1 Activated Clotting Time 283 H* Sodium 141 Potassium 4.2 Chloride 105 Carbon Dioxide 30 Anion Gap 10.2 BUN 13 Creatinine 0.90 Estimated Creat Clear 126 Estimated GFR 89 Est GFR ( Amer) 108 Glucose 99 D POC Glucose 185 H Hemoglobin A1c Calcium 9.1 Total Bilirubin AST ALT Alkaline Phosphatase Troponin I 0.01 Total Protein Albumin Globulin Albumin/Globulin Ratio Triglycerides Cholesterol LDL Cholesterol Direct VLDL Cholesterol HDL Cholesterol Cholesterol/HDL Ratio Lipase TSH 11/22/23 11/22/23 10:57 08:10 WBC 7.7 RBC 5.34 Hgb 15.1 Hct 46.4 MCV 87.1 MCH 28.3 MCHC 32.6 RDW 15.0 Plt Count 241 MPV 8.3 Neut % (Auto) 60.6 Lymph % (Auto) 27.8 Prowers % (Auto) 7.3 Eos % (Auto) 2.8 Baso % (Auto) 1.4 Neut # (Auto) 4.7 Lymph # (Auto) 2.1 Prowers # (Auto) 0.6 Eos # (Auto) 0.2 Baso # (Auto) 0.1 Activated Clotting Time Sodium 140 Potassium 4.0 Chloride 106 Carbon Dioxide 28 Anion Gap 10.0 BUN 13 Creatinine 0.80 Estimated Creat Clear 144 Estimated GFR 102 Est GFR ( Amer) 123 Glucose 127 H POC Glucose Hemoglobin A1c 5.7 Calcium 9.3 Total Bilirubin 0.7 AST 33 ALT 20 Alkaline Phosphatase 73 Troponin I 0.04 H 0.03 Total Protein 7.8 Albumin 4.5 Globulin 3.3 H Albumin/Globulin Ratio 1.4 Triglycerides 135 Cholesterol 260 H LDL Cholesterol Direct 166.98 H VLDL Cholesterol 27 HDL Cholesterol 30 L Cholesterol/HDL Ratio 8.7 H Lipase 59 TSH 1.46 DS: Diagnosis Discharge Diagnosis (1) Elevated troponin: Status: Acute Code(s): R79.89 - Other specified abnormal findings of blood chemistry (2) Chest pain: Status: Acute Code(s): R07.9 - Chest pain, unspecified Qualifiers: Chest pain type: unspecified Qualified Code(s): R07.9 - Chest pain, unspecified (3) Diabetes 1.5, managed as type 2: Status: Chronic Code(s): E10.9 - Type 1 diabetes mellitus without complications (4) Tobacco abuse: Status: Acute Code(s): Z72.0 - Tobacco use (5) Hyperlipidemia associated with type 2 diabetes mellitus: Status: Acute Code(s): E11.69 - Type 2 diabetes mellitus with other specified complication; E78.5 - Hyperlipidemia, unspecified (6) Chronic narcotic use: Status: Acute Code(s): F11.90 - Opioid use, unspecified, uncomplicated Discharge Plan Disposition Patient Disposition: Home, Self-Care Condition: Fair Follow up Plan Follow up with: Ti Yancey DO [Primary Care Provider] - Enter time for follow up Landon York MD [Staff Physician] - Enter time for follow up Prescriptions/Medication Reconciliation: New atorvastatin 40 mg Tablet 40 mg PO HS 30 Days Qty: 30 0RF aspirin 81 mg Tablet,Chewable 81 mg PO DAILY 30 Days Qty: 30 0RF Jardiance 10 mg Tablet 10 mg PO DAILY 30 Days Qty: 30 0RF nicotine 21 mg/24 hr patch 24 hour 1 patch transdermal DAILY Qty: 28 2RF Continued methadone 40 mg Tablet,Soluble 100 mg PO DAILY Problem Reconciliation Problems Reviewed?: Yes Patient Discharge Instructions ACTIVITY: Continue current activity DIET: continue same diet Patient Instructions: DI for Heart Attack, DI for Chest Pain Providers Primary Care Provider: Ti Yancey Admit Provider: Kelvin Traylor Attending Provider: Kelvin Traylor
[2023-11-22] MEDS: ATORVASTATIN 40MG TABLET 40 MG PO (20:18)
--- NOTE | 2023-11-24 14:47 | CARE MANAGER ---
Attempted to contact patient and left message with person. LINDA London
== END 2023-11-22 20:33 | disposition home or self-care (01) ==
LOC: ER 12:24 → 2ND 12:39
PROVIDERS: Internal Medicine; Admitting Provider Internal Medicine Adolescent Medicine; Emergency Provider Emergency Medicine; PCP Internal Medicine; Visit Provider Internal Medicine Adolescent Medicine
DX: R07.9 Chest pain, unspecified (principal); F17.210 Nicotine dependence, cigarettes, uncomplicated; E11.69 Type 2 diabetes mellitus with other specified complication; E78.5 Hyperlipidemia, unspecified; Z79.899 Other long term (current) drug therapy; Z79.891 Long term (current) use of opiate analgesic; I25.10 Atherosclerotic heart disease of native coronary artery without angina pectoris
CPT/HCPCS: 36415; 71045; 80048; 80053; 80061; 82962; 83036; 83690; 84443; 84484; 85025; 85347; 92978; 93005; 93306; 93458; 99152; 99285; C1725; C1769; G0378; J1644; Q9967

== ENCOUNTER 2024-05-10 08:09 | Emergency (ER) | payer OTHER, SELFPAY ==
[2024-05-10 08:26] VITALS: BP 167/69; PULSE 70; PULSE 74; RESP 18; TEMP 36.8; O2SAT 96; O2SAT 99; BMI 31.0
--- NOTE | 2024-05-10 08:28 | ED_ITS ---
Discharge Plan Disposition Patient Disposition: Home, Self-Care Prescriptions Prescriptions: No Action methadone 40 mg Tablet,Soluble 100 mg PO DAILY Referrals Follow up/Referrals: Ti Yancey DO [Primary Care Provider] - See instructions Activity Restrictions/Add. Instructions Additional Instructions/Restrictions: Follow-up with your primary care physician. Take 2 capfuls of MiraLAX every day until your stools become loose. At this point, take only 1 capful of MiraLAX daily to keep your stools soft and regular. Drink plenty of fluids to help ensure you are hydrated. If you develop any new or worsening symptoms, or if you become concerned for your health for any reason, return to the emergency department for evaluation Clinical Impressions Clinical Impression: Acute constipation, Fecal impaction in rectum Instructions Patient Instructions: DI for Acute Abdominal Pain Print Language Print Language: Uruguayan Discharge ED Provider: Binh Douglas Adult HPI General Chief complaint: Abdominal Pain Stated complaint: pain in lower rt abd and back Time Seen by Provider: 05/10/24 08:29 History of Present Illness HPI narrative: Quincy Wilson is a 54-year-old male with a history of diabetes mellitus, cholecystectomy presenting to the emergency department for complaints of suprapubic and right lower quadrant abdominal pain. Patient states that the pain began yesterday morning and is sharp and waxing and waning in nature, however it is getting more frequent and more intense. Patient denies any recent constipation states that his bowel movements have been normal and nonbloody. His last bowel movement was yesterday. He denies any dysuria or hematuria. He is reporting some mild pain to his left flank as well. He took Pepto-Bismol for his come plaints at home, however he did not have any relief. He denies any nausea or vomiting. He denies having any similar type pain in the past. He denies any fevers. 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 Medical History Diabetes mellitus, type 2 Surgical History History of shoulder surgery History of cholecystectomy Family History No significant family history Social History Smoking Status: Current every day smoker tobacco type: cigarettes packs per day: 1 alcohol intake: never substance use type: denies use current occupational status: unemployed Travel in the last 8 weeks: None household members: family housing: house ROS Obtained: Yes Systems reviewed as appropriate & no additional complaints except as documented Physical Exam General General appearance: alert and other (Appears uncomfortable) Head Head exam: atraumatic Eye Eye exam: Present normal appearance ENT ENT exam: Present normal external ear exam Neck Neck exam: Present full ROM Chest Chest inspection: Present symmetric chest wall rise Respiratory Respiratory exam: Present normal lung sounds bilaterally; Absent respiratory distress, wheezes or stridor Cardiovascular Cardiovascular exam: Present regular rate and normal rhythm Abdominal Exam Abdominal exam: Present soft, distention (suprapubic), tenderness and guarding; Absent rigidity Abdominal tenderness: Present RLQ and suprapubic exam: Present deferred Extremities Exam Extremities exam: Present normal inspection Back Exam Back exam: Present normal inspection Neurological Exam Neurological exam: Present alert and oriented X3 Psychiatric Psychiatric exam: Present normal affect Skin Skin exam: Present warm and dry Medical Decision Making Dixon Inquiry Pt receiving controlled substance: No Vital Signs: 05/10/24 08:26 05/10/24 08:26 05/10/24 08:45 Temperature 98.3 F Temperature Source Oral Pulse Rate 74 64 Pulse Rate [Right Brachial] 70 Respiratory Rate 18 Blood Pressure 167/69 H 181/70 H Blood Pressure [Right Arm] 167/69 H Blood Pressure Mean [Right Arm] 101 Blood Pressure Source [Right Arm] Automatic Cuff Blood Pressure Position [Right Arm] Sitting 02 Sat by Pulse Oximetry 99 96 97 Oxygen Delivery Method Room Air 05/10/24 09:20 Temperature Temperature Source Pulse Rate 71 Pulse Rate [Right Brachial] Respiratory Rate Blood Pressure Blood Pressure [Right Arm] Blood Pressure Mean [Right Arm] Blood Pressure Source [Right Arm] Blood Pressure Position [Right Arm] 02 Sat by Pulse Oximetry 97 Oxygen Delivery Method Lab Data Lab Results 05/10/24 08:21: WBC 7.0, RBC 5.04, Hgb 14.1, Hct 44.5, MCV 88.4, MCH 28.0, MCHC 31.7 L, RDW 15.5, Plt Count 281, MPV 8.2, Neut % (Auto) 59.8, Lymph % (Auto) 28.9, [place] % (Auto) 6.5, Eos % (Auto) 3.3, Baso % (Auto) 1.4, Neut # (Auto) 4.2, Lymph # (Auto) 2.0, [place] # (Auto) 0.5, Eos # (Auto) 0.2, Baso # (Auto) 0.1, Sodium 140, Potassium 3.9, Chloride 104, Carbon Dioxide 28, Anion Gap 11.9, BUN 11, Creatinine 0.80, Estimated Creat Clear 146, Estimated GFR 102, Est GFR ( Amer) 123, Glucose 123 H, Lactate 1.6, Calcium 8.7, Total Bilirubin 0.5, AST 30, ALT 23, Alkaline Phosphatase 76, Total Protein 7.5, Albumin 4.1, G lobulin 3.4 H, Albumin/Globulin Ratio 1.2, Lipase 41 05/10/24 09:18: Urine Color Yellow, Urine Appearance Clear, Urine pH 6.0, Ur Specific [place] 1.025, Urine Protein Negative, Urine Glucose (UA) Negative, Urine Ketones Negative, Urine Blood Negative, Urine Nitrate Negative, Urine Bilirubin Negative, Urine Urobilinogen 1.0, Ur Leukocyte Esterase Negative, Urine RBC Occasional, Urine WBC Occasional, Ur Squamous Epith Cells Occasional, Urine Bacteria Trace, Urine Mucus 1+ 05/10/24 08:21 05/10/24 08:21 Orders (Tests/Meds): ED MEDICATIONS Discontinued Medications Generic Name Dose Route Start Last Admin Trade Name Freq PRN Reason Stop Dose Admin Hydromorphone HCl 0.5 mg 05/10/24 09:13 05/10/24 09:15 Hydromorphone 2mg/Ml Syringe IV 05/10/24 09:14 0.5 mg ONCE ONE Administration Iopamidol 75 ml 05/10/24 09:08 05/10/24 09:09 Iopamidol-370 (76%);100ml Bottle IV 05/10/24 09:09 75 ml ONCE ONE Administration Morphine Sulfate 4 mg 05/10/24 08:36 05/10/24 08:43 Morphine 4mg/Ml Syringe IV 05/10/24 08:37 4 mg ONCE ONE Administration Sodium Chloride 10 ml 05/10/24 09:08 05/10/24 09:09 Sodium Chloride 0.9% 10ml Syr (Rad Only) IV 05/10/24 09:09 10 ml ONCE ONE Administration ORDERS Category Date Time Status CT abdomen pelvis w con Stat Cat Scan 05/10/24 08:36 Completed CBC w/Auto Diff [Complete Blood Count Auto Diff] Stat Lab 05/10/24 08:21 Completed CMP [Comprehensive Metabolic Panel] Stat Lab 05/10/24 08:21 Completed Lactic Acid Stat Lab 05/10/24 08:21 Completed Lipase Stat Lab 05/10/24 08:21 Completed Urinalysis and Microscopic Stat Lab 05/10/24 09:18 Completed Medical Decision Narrative: Quincy is a 54-year-old male with a past medical history of diabetes mellitus who presents to the emergency department for complaints of day 2 of right lower quadrant and suprapubic abdominal pain that is sharp and waxing and waning in nature. No vomiting, no diarrhea or constipation. History of cholecystectomy. On arrival, patient is hypertensive but hemodynamically stable, heart rate within normal limits, afebrile, maintaining appropriate oxygen saturation on room air. Physical exam demonstrated a comfortable appearing male and is nontoxic-appearing. He has right lower quadrant and suprapubic tenderness with guarding but his abdomen is nonperitonitic. Differential diagnosis includes: Appendicitis, diverticulitis, constipation, fecal impaction, small bowel obstruction, gastroparesis, pancreatitis, UTI, ureterolithiasis, among others. Patient's workup in the emergency department included: CBC, CMP, lipase, urinalysis, CT abdomen pelvis with IV contrast lactic acid. Patient's symptoms were treated with 4 mg of IV morphine. Labs are significant for CBC unremarkable nonactionable with no leukocytosis, urine without evidence of infection, no JEFF, electrolytes within normal limits, glucose 123, lactate normal at 1.6, liver enzymes within normal limits, lipase normal at 41 CT imaging was interpreted by me personally and demonstrates stool within the rectal vault consistent with a fecal impaction. Radiology interpretation consistent with this as well as some mild stercoral colitis. No evidence of perforation at this time. Given this, we will administer a soapsuds enema. After the enema, patient stated that he had a bowel movement of liquid and stool and had relief of his symptoms at this time. He reports that he wants to go home. Given his resolution of symptoms after adequate bowel movement, is felt that he is appropriate for discharge at this time. He notes that he has MiraLAX at home but has not been taking it. He was instructed to take 2 capfuls of MiraLAX daily until his stools become loose and then take 1 capful of MiraLAX daily at that point. He was encouraged to drink plenty of fluids to stay hydrated. Return precautions were given. All questions were answered. He demonstrated understanding and was in agreement with this plan. He was then discharged from the emergency department in stable condition. Critical Care Critical Care Time Critical Care Time: No
--- NOTE | 2024-05-10 08:36 | CT_ITS ---
FINAL REPORT TECHNIQUE: After the administration of oral and intravenous contrast, axial images were obtained through the abdomen and pelvis by computed tomography. The study was performed with techniques to keep radiation dose as low as reasonably achievable, (ALARA). Individual dose reduction techniques using automated exposure control or adjustment of mA and/or kV according to the patient's size were employed. CLINICAL HISTORY: RLQ/suprapubic pain, concern for appendicitis FINDINGS: Abdomen: The lung bases are clear. The liver is normal in size and attenuation. The patient is status post cholecystectomy. The spleen is unremarkable. The adrenals are normal. The pancreas is unremarkable. The kidneys enhance appropriately. The aorta is normal in caliber. There is no free fluid or adenopathy. Pelvis: The appendix is normal. There is moderately distended stool filled rectum. There is mild rectal wall thickening worrisome for mild stercoral colitis. Mild vascular calcification is identified. The urinary bladder is unremarkable. There is no free fluid or adenopathy. IMPRESSION: Findings worrisome for mild stercoral colitis. Reviewed, Interpreted and Dictated by Asim Cardona III, MD Transcribed by Wanda Vilella Authenticated and . [facility]
[2024-05-10] MEDS: MORPHINE 4MG/ML SYRINGE 4 MG IV (08:43)
[2024-05-10 08:45] VITALS: BP 181/70; PULSE 64; O2SAT 97
[2024-05-10 08:46] LABS: Basophils # 0.1 K/mm3 (0-0.2); Basophils % 1.4 % (0.1-2.0); Eosinophils # 0.2 K/mm3 (0.0-0.4); Eosinophils % 3.3 % (0.1-12.0); Hematocrit 44.5 % (42.0-52.0); Hemoglobin 14.1 g/dL (14.1-18.0); Lymphocytes % 28.9 % (10-50); Mean Corpuscular HGB Conc 31.7 g/dL (31.8-35.4); Mean Corpuscular Volume 88.4 fl (80-94); Mean Platelet Volume 8.2 fl (7.4-10.4); Monocytes # 0.5 K/mm3 (0.1-1.0); Monocytes % 6.5 % (1.7-9.3); Neutrophils # 4.2 K/mm3 (1.8-7.8); Neutrophils % 59.8 % (37.0-80.0); Platelet Count 281 K/mm3 (142-424); Red Blood Count 5.04 M/mm3 (4.60-6.20); Red Cell Distribution Width 15.5 % (11.5-17.5)
--- NOTE | 2024-05-10 08:47 | PC.NURSE ---
Rounded on PT, PT was given a glass of water. Call light in reach of PT.
[2024-05-10 08:51] LABS: Alanine Aminotransferase 23 U/L (12-78); Albumin Level 4.1 g/dl (3.5-5.0); Albumin/Globulin Ratio 1.2 (1.1-1.8); Alkaline Phosphatase 76 U/L (38-126); Anion Gap 11.9 mEq/L (5-15); Aspartate Amino Transferase 30 U/L (17-59); Bilirubin,Total 0.5 mg/dl (0.2-1.3); Blood Urea Nitrogen 11 mg/dl (9-20); Calcium 8.7 mg/dl (8.4-10.2); Carbon Dioxide 28 mmol/L (22.0-30.0); Chloride 104 mmol/L (98-107); Creatinine Clearance Estimated 146 mL/min (50-200); Estimated Glomerular Filt Rate 102 ml/min (>60); GFR (African American) 123 ML/MIN (>60); Globulin 3.4 g/dL (1.3-3.2); Glucose 123 mg/dl (74-100); Lactic Acid 1.6 mmol/L (0.7-2.1); Lipase 41 U/L (23-300); Potassium 3.9 mmoL/L (3.5-5.1); Sodium 140 mmol/L (136-145); Total Protein,Serum 7.5 g/dl (6.3-8.2)
[2024-05-10] MEDS: IOPAMIDOL-370 (76%);100ML BOTTLE 75 ML IV (09:09)
[2024-05-10] MEDS: SODIUM CHLORIDE 0.9% 10ML SYR (RAD ONLY) 10 ML IV (09:09)
[2024-05-10] MEDS: HYDROMORPHONE 2MG/ML SYRINGE 0.5 MG IV (09:15)
[2024-05-10 09:20] VITALS: PULSE 71; O2SAT 97
[2024-05-10 09:24] LABS: Microscopic, Urine URINE MICROSCOPIC (MICROSCOPIC)
[2024-05-10 09:40] LABS: Appearance,Urine CLEAR (Clear); Bilirubin,Urine Negative (Negative); Blood, Urine Negative (Negative); Color,Urine YELLOW (Yellow); Glucose,Urine (UA) Negative (Negative); Ketones,Urine Negative (Negative); Leukocyte Esterase,Urine Negative (Negative); Nitrate,Urine Negative (Negative); Protein,Urine Negative (Negative); Specific Gravity, Urine 1.025 (1.005-1.030)
[2024-05-10 09:55] LABS: Bacteria,Urine Trace /lpf; Mucus,Urine 1+ /lpf; RBC,Urine Occasional #/hpf (0-3); Squamous Epithelial Cell,Urine Occasional #/hpf (0-5); WBC,Urine Occasional #/hpf (0-3)
--- NOTE | 2024-05-10 10:37 | PC.NURSE ---
Pt. reported he had a large bowel movement.
[2024-05-10 10:44] VITALS: BP 152/70; PULSE 63; RESP 16; TEMP 36.7; O2SAT 97
== END 2024-05-10 10:48 | disposition home or self-care (01) ==
PROVIDERS: Emergency Provider Student in an Organized Health Care Education/Training Program; PCP Internal Medicine
DX: R10.30 Lower abdominal pain, unspecified (principal); K56.41 Fecal impaction
CPT/HCPCS: 74177; 80053; 81001; 83605; 83690; 85025; 96374; 96375; 99284; J1170; J2270; Q9967

== ENCOUNTER 2024-08-10 15:28 | Emergency (ER) | payer OTHER, SELFPAY ==
[2024-08-10 15:50] VITALS: BP 116/72; PULSE 78; RESP 18; TEMP 36.8; O2SAT 96; BMI 31.2
--- NOTE | 2024-08-10 16:02 | EXP.UTC ---
Discharge Plan Disposition Patient Disposition: Home, Self-Care Condition: Good Prescriptions Prescriptions: No Action No Known Home Medications Referrals Follow up/Referrals: Ti Yancey DO [Primary Care Provider] - See instructions Activity Restrictions/Add. Instructions Additional Instructions/Restrictions: *Monitor Temp, Over the counter Motrin or Tylenol as directed/as needed Tylenol every 4 hours and Motrin every 6 hours (as long as your family doctor has told you that you can take it) for fever or pain. and straight to ER if unable to lower temp less than 101.0 after medication given *Warm salt water gargles may help to soothe the throat *Throat Lozenges? *Warm fluids like tea with honey may help to soothe the throat? *Sleep elevated *Humidifier/Vaporizer *Your throat swab was sent for culture. Those results are typically sent to your primary care. Be sure to follow up in 2-3 days with your family doctor/primary care physician if no improvement so they can review those result and treat if necessary. If you don?t have a primary care doctor, I recommend you get one but in the mean time, you will have to return to a walk in clinic Follow up IMMEDIATELY for new or worsening symptoms or no Noticeable improvement over the next 48-72 hours. 911 for difficulty breathing or swallowing You was tested for COVID, your test results should be back in the next 24 hours and available on the [facility] [employer] [facility] Clinical Impressions Clinical Impression: Viral syndrome Stand Alone Forms Stand Alone Forms: Work/School Release Instructions Patient Instructions: DI for Viral Syndrome Print Language Print Language: Burmese Discharge ED Provider: Ema Renae [facility] HPI General Stated complaint: body aches , cough Mode of Arrival: Ambulatory Source of Information: Patient Limitations: No Limitations Time Seen by Provider: 08/10/24 16:02 Description of Symptoms (Recalled from Triage Doc. by RN): PATIENT C/O COUGH, BODY ACHES, AND NO ENERGY SINCE WEDNESDAY HEENT Symptoms (Recalled from RN notes): No Resp Symptoms (Recalled from RN notes): Yes Skin Symptoms (Recalled from RN notes): No MS Symptoms (Recalled from RN notes): No Functional Status (Recalled from RN notes): WNL History of Present Illness Provider Complaint: Patient states that he started feeling bad on Wed with body aches, chills, sore throat, cough and no energy States today he was still not feeling any better and son having similar symptoms so he came in to get checked worried he may have flu or something States that he has been around niece that recently tested positive for COVID Related Data Home Medications ?Medication ?Instructions ?Recorded ?Confirmed No Known Home Medications 08/10/24 08/10/24 Allergies Allergy/AdvReac Type Severity Reaction Status Date / Time Penicillins (PENICILLINS) AdvReac Intermediate Rash Verified 05/10/24 08:32 Worker's Comp Is this a Worker's Comp case?: No [facility] Disclaimer: The information contained in this section may have been updated after the patient was seen, as this information can be updated by other users. Medical History Diabetes mellitus, type 2 Surgical History History of shoulder surgery History of cholecystectomy Family History No significant family history Social History Smoking Status: Current every day smoker tobacco type: cigarettes packs per day: 1 alcohol intake: never substance use type: denies use current occupational status: unemployed Travel in the last 8 weeks: None household members: family housing: house Have you lived/traveled outside [place] in past 30 days?: No Contact w/someone who lives/traveled outside US past 30 days?: No Exposure to someone with infectious disease in past 14 days?: No Do you have a fever (greater than 100.4 F or 38 C)?: No Have you tested positive for COVID-19: No Exposed to someone with COVID-19 in past 14 days?: No Do you have a sore throat?: Yes Do you have a cough?: Yes Do you have any weakness?: No Do you have any diarrhea?: No Are you experiencing any unusual bleeding?: No Do you have any muscle aches/pain?: No Do you have any abdominal pain?: No Are you experiencing loss of taste or smell?: No ROS Obtained: Yes All systems reviewed & no additional complaints except as documented and Yes Systems reviewed as appropriate & no additional complaints except as documented Constitutional Constitutional: Reports system reviewed and no additional complaints, except as documented, Reports as per HPI, Reports body ache, Reports chills and Reports fatigue ENT Ears, Nose, Mouth, and Throat: Reports system reviewed and no additional complaints, except as documented, Reports as per HPI, Reports nasal congestion, Reports nasal discharge and Reports sore throat Cardiovascular Cardiovascular: Reports system reviewed and no additional complaints, except as documented and Reports as per HPI Respiratory Respiratory: Reports system reviewed and no additional complaints, except as documented, Reports as per HPI and Reports cough Gastrointestinal Gastrointestingal: Reports system reviewed and no additional complaints, except as documented and as per HPI Musculoskeletal Musculoskeletal: Reports system reviewed and no additional complaints, except as documented and Reports as per HPI Endocrine Endocrine: Reports fatigue Physical Exam General General appearance: alert and in no apparent distress ENT ENT exam: Present mucous membranes moist Expanded ENT Exam Nose exam: Absent sinus tenderness Throat exam: Present other (mild pharyngeal erythema noted) Respiratory Respiratory exam: Present normal lung sounds bilaterally; Absent respiratory distress or wheezes Cardiovascular Cardiovascular exam: Present regular rate, normal rhythm and normal heart sounds Abdominal Exam Abdominal exam: Present soft and normal bowel sounds; Absent distention or tenderness Neurological Exam Neurological exam: Present alert, oriented X3 and normal gait Medical Decision Making Medical Records Screening: Per USPSTF and CDC recommendations, given the prevalence of disease in our region, it is our hospital?s policy to screen for HIV and viral Hepatitis for all patients aged 18 and over and those with ongoing risk factors. Dixon Inquiry Pt receiving controlled substance: No Dixon was queried for this patient: No Vital Signs: 08/10/24 15:50 Temperature 98.2 F Temperature Source Oral Pulse Rate [Left Brachial] 78 Respiratory Rate 18 Blood Pressure [Left Arm] 116/72 Blood Pressure Mean [Left Arm] 86 Blood Pressure Source [Left Arm] Automatic Cuff Blood Pressure Position [Left Arm] Sitting 02 Sat by Pulse Oximetry 96 Oxygen Delivery Method Room Air Lab Data Lab results reviewed: Yes I reviewed the patient's lab results.
[2024-08-10 16:16] LABS: UTC Influenza A Antigen Negative (Negative); UTC Influenza B Antigen Negative (Negative); UTC Strep Screen (Rapid) Negative (Negative)
[2024-08-10 16:23] VITALS: BP 116/72; PULSE 78; RESP 18; TEMP 36.8; O2SAT 96
== END 2024-08-10 16:30 | disposition home or self-care (01) ==
PROVIDERS: Emergency Provider Nurse Practitioner; PCP Internal Medicine
DX: B34.9 Viral infection, unspecified (principal)
CPT/HCPCS: 87635; 87804; 87880; 99213; G0381

== ENCOUNTER 2025-02-19 11:21 | Outpatient (CLI) | payer OTHER, SELFPAY ==
--- NOTE | 2025-02-19 11:35 | XR_ITS ---
FINAL REPORT CLINICAL HISTORY: decrease ROM/pain FINDINGS: Four views show no evidence of acute displaced fracture or dislocation of the visualized bony architecture. There are mild degenerative changes. IMPRESSION: Mild degenerative changes. Reviewed, Interpreted and Dictated by Breonna Ocampo MD Transcribed by Wanda Villela Authenticated and [facility]
--- NOTE | 2025-02-19 11:35 | XR_ITS ---
FINAL REPORT CLINICAL HISTORY: pain FINDINGS: Three views show no evidence of acute displaced fracture or dislocation of the visualized bony architecture. There are moderate degenerative changes. IMPRESSION: Moderate degenerative changes. Reviewed, Interpreted and Dictated by Breonna Ocampo MD Transcribed by Wanda Villela Authenticated and [facility]
[2025-02-19 12:05] LABS: Basophils # 0.1 K/mm3 (0-0.2); Basophils % 0.9 % (0.1-2.0); Eosinophils # 0.2 Kmm3 (0.0-0.4); Eosinophils % 2.6 % (0.1-12.0); Hematocrit 42.2 % (42.0-52.0); Immature Granulocytes # 0.02 10^3uL; Immature Granulocytes % 0.3 %; Lymphocytes # 2.2 K/mm3 (0.7-4.5); Lymphocytes % 30.4 % (10-50); Mean Corpuscular HGB Conc 33.2 g/dL (31.8-35.4); Mean Corpuscular Hemoglobin 27.2 pg (27.0-31.2); Mean Corpuscular Volume 82.1 fl (80-94); Mean Platelet Volume 10.5 fl (7.4-10.4); Monocytes # 0.4 K/mm3 (0.1-1.0); Monocytes % 5.7 % (1.7-9.3); Neutrophils # 4.4 K/mm3 (1.8-7.8); Neutrophils % 60.1 % (37.0-80.0); Nucleated Red Blood Cells # 0 10^3/uL; Nucleated Red Blood Cells % 0 %; Platelet Count 236 K/mm3 (142-424); Red Blood Count 5.14 M/mm3 (4.60-6.20); Red Cell Distribution Width 14.4 % (11.5-17.5); Red Cell Distribution Width-SD 42.9 fL; White Blood Count 7.4 K/mm3 (4.8-10.8)
[2025-02-19 12:40] LABS: Hemoglobin A1C 7.7 % (4.0-6.0)
[2025-02-19 12:45] LABS: Alanine Aminotransferase 19 U/L (12-78); Albumin/Globulin Ratio 1.4 (1.1-1.8); Alkaline Phosphatase 69 U/L (38-126); Anion Gap 7.3 mEq/L (5-15); Aspartate Amino Transferase 25 U/L (17-59); Bilirubin,Total 0.7 mg/dl (0.2-1.3); Blood Urea Nitrogen 11 mg/dl (9-20); Calcium 9.5 mg/dl (8.4-10.2); Carbon Dioxide 31 mmol/L (22.0-30.0); Chloride 104 mmol/L (98-107); Chol/HDL Ratio 7.4 (1-3.5); Cholesterol 229 mg/dl (140-200); Estimated Glomerular Filt Rate 89 ml/min (>60); GFR (African American) 107 ML/MIN (>60); Globulin 2.8 g/dL (1.3-3.2); Glucose 194 mg/dl (74-100); HDL Cholesterol 31 mg/dl (40-60); Potassium 4.3 mmoL/L (3.5-5.1); Sodium 138 mmol/L (136-145); Total Protein,Serum 6.8 g/dl (6.3-8.2); Triglycerides 221 mg/dl (30-150); VLDL Cholesterol 44 mg/dL (0-40)
[2025-02-19 12:56] LABS: Direct LDL Cholesterol 155.72 mg/dL (100-129)
[2025-02-19 13:16] LABS: Prostate Specific Ag Screen 2.7 ng/ml (0.0-4.0)
== END 2025-02-19 23:59 | disposition home or self-care (01) ==
LOC: LAB 11:22
PROVIDERS: PCP Family Medicine; Visit Provider Family Medicine
DX: Z00.00 Encounter for general adult medical examination without abnormal findings (principal); M19.012 Primary osteoarthritis, left shoulder; M19.011 Primary osteoarthritis, right shoulder; M67.919 Unspecified disorder of synovium and tendon, unspecified shoulder
CPT/HCPCS: 36415; 73030; 80053; 80061; 83036; 85025; G0103

== ENCOUNTER 2025-03-22 09:00 | Outpatient (RCR) | payer OTHER, SELFPAY | END 2025-03-22 23:59 | disposition home or self-care (01) | LOC: OT 09:00 | PROVIDERS: PCP Family Medicine; Visit Provider Family Medicine | DX: M25.611 Stiffness of right shoulder, not elsewhere classified (principal) | CPT/HCPCS: 97014; 97032; 97035; 97140; 97165; 97530; G0283 ==